=== PATIENT | male | born 1955 | race Caucasian/White ===

== ENCOUNTER 2019-07-22 09:30 | Emergency (ER) | payer OTHER, MEDICAID ==
[~2019-07-22] VITALS: Ht 172.7 cm; Wt 79.8 kg
[2019-07-22 09:43] VITALS: BP 122/63
--- NOTE | 2019-07-22 10:06 | NUR ---
64M BIB CAREGIVER C/O VOMITING A "DARK BROWN" LIQUID 2X YESTERDAY. PER CAREGIVER, PT HAS NOT BEEN EATING LIKE NORMAL, HAS DECREASED APPETITE, WOULD TO COUGHING/GAGGING WHEN PRESENTED WITH FOOD. THE DECREASE APPETITE HAS BEEN AN ONGOING ISSUE FOR MONTHS. PT DOES DRINK BOOST THOUGH. NO CHANGES IN WEIGHT. NO FEVER. HX: HTN, SEIZURES, INTELECTUAL DISSABILITY, ANEMIA, BOWEL RECONSTRUCTION SURGERY S/P OBSTRUCTION RX: SEE MED REC
[2019-07-22] MEDS ORDERED: NACL 0.9% 500 ML IV SCH (10:38)
[2019-07-22] MEDS ORDERED: PANTOPRAZOLE 40 MG INJ VIAL IVP ONE (10:40)
[2019-07-22] MEDS ORDERED: ONDANSETRON 4 MG/2 ML VIAL IVP ONE (10:40)
--- NOTE | 2019-07-22 11:22 | NUR ---
RALPH ALVARADO AT BEDSIDE FOR IV INSERTION.
--- NOTE | 2019-07-22 11:40 | NUR ---
XRAY AT BEDSIDE
[2019-07-22 11:48] LABS: BASOPHILS % (AUTO) 0.2 % (0.0-2.0); EOSINOPHILS # (AUTO) 0.4 K/uL (0-0.4); EOSINOPHILS % (AUTO) 5.4 % (0.0-4.0); HEMATOCRIT 41.6 % (36-52); HEMOGLOBIN 13.9 g/dL (12.0-18.0); LYMPHOCYTES # (AUTO) 1.8 K/uL (2.0-11.5); LYMPHOCYTES % (AUTO) 23.3 % (20.5-51.1); MEAN CORPUSCULAR HEMOGLOBIN 36 pg (27-31); MEAN CORPUSCULAR HGB CONC 34 g/dL (33-37); MEAN CORPUSCULAR VOLUME 107.8 fL (80-94); MONOCYTES # (AUTO) 1.5 K/uL (0.8-1.0); MONOCYTES % (AUTO) 20.3 % (1.7-9.3); NEUTROPHILS # (AUTO) 3.9 K/uL (1.8-7.7); NEUTROPHILS % (AUTO) 50.8 % (42.2-75.2); PLATELET COUNT (AUTO) 113 K/uL (140-450); RED BLOOD CELL COUNT(AUTO) 3.86 MIL/uL (4.20-6.10); RED CELL DISTRIBUTION WIDTH 13.8 % (11.6-13.7); WHITE BLOOD COUNT (AUTO) 7.6 K/uL (4.8-10.8)
[2019-07-22 12:00] LABS: APPEARANCE,URINE SL CLOUDY (CLEAR); BILIRUBIN,URINE NEGATIVE (NEGATIVE); BLOOD, URINE 3+ (NEGATIVE); COLOR,URINE YELLOW (YELLOW); LEUKOCYTE ESTERASE ,URINE 2+ (NEGATIVE); NITRITE, URINE NEGATIVE (NEGATIVE); UGLUCOSE NEGATIVE (NEGATIVE)
[2019-07-22 12:04] LABS: PROTHROMBIN TIME 10.7 secs (10.8-13.4)
[2019-07-22 12:11] LABS: ALBUMIN 3.1 g/dL (3.4-5.0); ANION GAP 10.3 (8-16); CARBON DIOXIDE 27.4 mmol/L (21-32); CREATININE 0.8 mg/dL (0.7-1.3); POTASSIUM 4.7 mmol/L (3.5-5.1); TOTAL BILIRUBIN 0.4 mg/dL (0.0-1.0)
--- NOTE | 2019-07-22 12:13 | NUR ---
Patient resting in bed, NAD, caregiver at bedside.
[2019-07-22 12:22] LABS: RBC,URINE 11-20 (MOD) /HPF (0-5); WBC,URINE TOO MANY TO COUNT /HPF (0-5)
[2019-07-22] MEDS ORDERED: LEVOFLOXACIN 500 MG/D5W PREMIX 100 ML IV ONE (13:05)
--- NOTE | 2019-07-22 14:31 | NUR ---
CALLED CT TO INQUIRE ABOUT ORDERED CT SCAN. NO ANSWER AT THIS TIME.
--- NOTE | 2019-07-22 14:31 | NUR ---
CT STATES DR. WOMACK INFORMED THEM THAT HE WILL ORDER A MEDICATION BEFORE TAKING PT TO CT SCAN. NOTIFIED DR. WOMACK NO NEW MED ORDER RECEIVED.
[2019-07-22] MEDS ORDERED: LORazepam 2 MG/ML VIAL IVP ONE (14:35)
--- NOTE | 2019-07-22 14:43 | NUR ---
NOTIFIED CT THAT ATIVAN HAS BEEN GIVEN.
--- NOTE | 2019-07-22 15:10 | NUR ---
CT states they will come oyster picker patient for CT scan.
--- NOTE | 2019-07-22 16:35 | NUR ---
Note jacquesnico in EDM - 07/22/19 at 1728 by MEDJOSH Patient discharged with v/s stable. Written and verbal after care instructions given and explained. Patient alert, oriented and verbalized understanding of instructions. Ambulatory with steady gait. All questions addressed prior to discharge. ID band removed. Patient advised to follow up with PMD. Rx of RODRIGO LIN given. Patient educated on indication of medication including possible reaction and side effects. Opportunity to ask questions provided and answered.
--- NOTE | 2019-07-22 16:35 | NUR ---
Patient discharged with v/s stable. Written and verbal after care instructions given and explained. Patient alert, oriented and verbalized understanding of instructions. Wheel Chair Assisted with by caregiver. All questions addressed prior to discharge. ID band removed. Patient advised to follow up with PMD. Rx of CIPRO, ZOFRAN given. Patient educated on indication of medication including possible reaction and side effects. Opportunity to ask questions provided and answered.
[2019-07-22 17:28] VITALS: BP 125/61
== END 2019-07-22 16:35 | disposition home or self-care (01) ==
LOC: MED 09:30
DX: N39.0 Urinary tract infection, site not specified (principal); I10 Essential (primary) hypertension; D64.9 Anemia, unspecified; F79 Unspecified intellectual disabilities; F17.200 Nicotine dependence, unspecified, uncomplicated; Z88.8 Allergy status to other drugs, medicaments and biological substances
CPT/HCPCS: 36415; 71045; 74176; 80053; 81001; 83605; 83690; 84484; 85025; 85610; 85730; 87040; 87086; 87186; 93005; 96361; 96365; 96375; 99284; C1758; C9113; J1956; J2060; J2405; J7030; Q0092

== ENCOUNTER 2019-08-16 12:10 | Inpatient (IN) | payer OTHER, MEDICAID ==
[~2019-08-16] VITALS: Ht 170.2 cm; Wt 66.7 kg
[2019-08-16 12:10] VITALS: BP 141/85
--- NOTE | 2019-08-16 12:49 | NUR ---
Called and spoke to Bebe about this patient and she will have Светлана [place] call me to explain why this patient is here.
--- NOTE | 2019-08-16 12:49 | NUR ---
Reyna from [facility] at bedside.
[2019-08-16] MEDS ORDERED: BISA-213 RC (13:01)
[2019-08-16] MEDS ORDERED: ATI.5 PO (13:01)
[2019-08-16] MEDS ORDERED: KEP500L PO (13:01)
[2019-08-16] MEDS ORDERED: ONDA4TAB PO (13:01)
[2019-08-16 14:28] LABS: ANION GAP 13.9 (8-16); CARBON DIOXIDE 24.7 mmol/L (21-32); CREATININE 0.7 mg/dL (0.7-1.3); POTASSIUM 4.6 mmol/L (3.5-5.1)
[2019-08-16 14:33] LABS: ALBUMIN 3.3 g/dL (3.4-5.0); TOTAL BILIRUBIN 0.6 mg/dL (0.0-1.0)
[2019-08-16 14:47] LABS: BASOPHILS % (AUTO) 0.8 % (0.0-2.0); EOSINOPHILS # (AUTO) 0.1 K/uL (0-0.4); EOSINOPHILS % (AUTO) 1.9 % (0.0-4.0); HEMATOCRIT 43.5 % (36-52); HEMOGLOBIN 14.6 g/dL (12.0-18.0); LYMPHOCYTES # (AUTO) 1.2 K/uL (2.0-11.5); LYMPHOCYTES % (AUTO) 23.6 % (20.5-51.1); MEAN CORPUSCULAR HEMOGLOBIN 35 pg (27-31); MEAN CORPUSCULAR HGB CONC 34 g/dL (33-37); MEAN CORPUSCULAR VOLUME 104.2 fL (80-94); MONOCYTES # (AUTO) 0.6 K/uL (0.8-1.0); MONOCYTES % (AUTO) 11.2 % (1.7-9.3); NEUTROPHILS # (AUTO) 3.1 K/uL (1.8-7.7); NEUTROPHILS % (AUTO) 62.5 % (42.2-75.2); PLATELET COUNT (AUTO) 248 K/uL (140-450); RED BLOOD CELL COUNT(AUTO) 4.18 MIL/uL (4.20-6.10); RED CELL DISTRIBUTION WIDTH 13.7 % (11.6-13.7)
--- NOTE | 2019-08-16 14:52 | NUR ---
Spoke with Gopal pts rn case mgr about pt status. Was informed that pt has had brown emesis over past year, w/ decreased oral intake and has not been taking oral seizure meds. PT has had GI and communication professor consult but has been unable to follow up d/t care facilites unable to follow through. Pt has had uncontrolled seizures in meant[place] and has been in and out of ERs. Per gopal pt needs to be admitted for further tests so that pt may be admitted to care facility w/ JENNY Orellana from [facility]. If jose daniel is unable to take pt once admitted gopal stated she does have another option for care facility. for further questions at this time, jose daniel should be contacted because gopal will not be in office until monday. JOSE DANIEL cell- [phone] GOPAL IZSJ - [phone]
[2019-08-16 15:23] LABS: APPEARANCE,URINE CLEAR (CLEAR); BILIRUBIN,URINE 1+ (NEGATIVE); BLOOD, URINE NEGATIVE (NEGATIVE); LEUKOCYTE ESTERASE ,URINE NEGATIVE (NEGATIVE); NITRITE, URINE NEGATIVE (NEGATIVE); PH,URINE 5.5 (5.0-9.0); UGLUCOSE NEGATIVE (NEGATIVE)
[2019-08-16 15:27] LABS: COLOR,URINE YELLOW (YELLOW)
--- NOTE | 2019-08-16 15:30 | NUR ---
Dr. Navarrete states pt does not need to be admitted at this time. I contacted Reyna and asked her if patient would be discharged back to [facility].
--- NOTE | 2019-08-16 15:53 | NUR ---
Speaking to Selene NICHOLE at [facility] to advise them that patient will be returning back to facility. I advised Selene that Светлана is aware that patient will be returning to facility. Selene advised her RN supervisor tower.
--- NOTE | 2019-08-16 15:57 | NUR ---
I called and spoke to FRANKI Gore from [facility] who states they cannot accept since they filled his bed with another bed and they are accomadating people from the fires and are 100% at capacity. he also states they cannot accomadate him d/t his pacemaker. He states they will not take him back at this time but if they have an open bed they will take him but wont be able to at this time.
[2019-08-16] MEDS ORDERED: DOCUSATE SODIUM 100 MG GELCAP PO PRN (16:20)
[2019-08-16] MEDS ORDERED: ACETAMINOPHEN 325 MG TAB PO PRN (16:20)
[2019-08-16] MEDS ORDERED: MORPHINE SULFATE 2 MG/ML SYR IVP PRN (16:20)
[2019-08-16] MEDS ORDERED: HYDROcodone/APAP 5/325 MG 1 TAB TAB PO PRN (16:20)
[2019-08-16] MEDS ORDERED: ONDANSETRON 4 MG/2 ML VIAL IM/IVP PRN (16:20)
[2019-08-16 17:20] VITALS: BP 140/60
--- NOTE | 2019-08-16 17:20 | NUR ---
Patient will be admitted to care of DR. BISHOP. Admited to TELE. Will go to [facility]. Belongings list completed. Report to JENNY LUBIN.
--- NOTE | 2019-08-16 17:20 | NUR ---
PATIENT ARRIVED FROM ER VIA GURNEY. NO DISTRESS NOTED. IN STABLE CONDITION. IV SITE INTACT, PATENT AND ON SALINE LOCK. RESPIRATIONS EVEN, UNLABORED, ON ROOM AIR. SKIN INTACT. APHASIC. ORIENTED PATIENT TO ROOM AND CALL LIGHT. REVIEWED PLAN OF CARE WITH PATIENT. UNABLE TO COMPREHEND. SAFETY MEASURES IN PLACE, CALL LIGHT WITHIN REACH. WILL CONTINUE TO MONITOR.
--- NOTE | 2019-08-16 17:30 | NUR ---
Note wallace in EDM - 08/16/19 at 1730 by [facility] Patient will be admitted to care of DR. BISHOP. Admited to TELE. Will go to [facility]. Belongings list completed. Report to JENNY LUBIN.
--- NOTE | 2019-08-16 18:00 | NUR ---
CALLED OLAMIDE(MOTHER) AT [phone] TO GET INFORMATION AND NOTIFIED HER OF SON'S CONDITION. WILL CONTINUE TO MONITOR.
[2019-08-16] MEDS: NACL 0.9% 1,000 ML IV SCH (18:10)
[2019-08-16 18:40] LABS: PROTHROMBIN TIME 10.3 secs (10.8-13.4)
[2019-08-16] MEDS ORDERED: ALBUTEROL SULFATE/IPRATROPIU 3 ML SOL IH PRN (19:05)
[2019-08-16] MEDS ORDERED: LORazepam 0.5 MG TAB PO PRN (19:10)
--- NOTE | 2019-08-16 19:30 | NUR ---
RECEIVED BEDSIDE REPORT FROM AM SHIFT RN AMEE, FOR PT'S CONTINUITY OF CARE. PT IS ASLEEP, APHASIC, ON ORTHOTIC TECHNICIAN, ON ROOM AIR, HAS RIGHT HAND 24G WITH NS AT 60ML/HR, WITH NO SIGNS OF DISTRESS. SEIZURE AND FALL PRECAUTION IN PLACE. VS CHECKED AND CHARTED. WILL MONITOR PT THROUGHOUT SHIFT
--- NOTE | 2019-08-16 19:30 | NUR ---
GAVE REPORT TO BEHAVIOR SPECIALIST NURSE FOR CONTINUITY OF CARE. PATIENT IN STABLE CONDITION.
[2019-08-16 20:00] VITALS: BP 104/68
[2019-08-16] MEDS: levETIRAcetam 500 MG TAB PO SCH (20:40)
--- NOTE | 2019-08-16 20:43 | NUR ---
ADMINISTERED SCHEDULED PO MEDICATION ORDERED. PT TOLERATED IT WELL. CT PERSONNEL AT BEDSIDE TO TAKE HIM FOR CT HEAD WITHOUT CONTRAST.
[2019-08-16 21:27] LABS: CHOL/HDL RATIO 4.3 (1-4.5); MAGNESIUM 2.1 mg/dL (1.8-2.4); PHOSPHORUS 3.8 mg/dL (2.5-4.9); THYROID STIMULATING HORMONE 2.35 uIU/mL (0.34-3.74)
--- NOTE | 2019-08-16 22:00 | NUR ---
MADE ROUNDS. PT APPEARS TO BE ASLEEP WITH NO SIGNS OF DISTRESS.
[2019-08-16] MEDS ORDERED: PIPERACILLIN/TAZOBACTAM 3.375 GM VIAL IV ONE (23:44)
[2019-08-16] MEDS: PIPERACILLIN/TAZOBACTAM 3.375 GM in DEXTROSE 5% 50 ML IV SCH (23:52)
[2019-08-17] VITALS: BP 119/63
--- NOTE | 2019-08-17 | NUR ---
VS CHECKED AND CHARTED. PT ASLEEP WITH NO SIGNS OF DISTRESS. WILL CONTINUE TO MONITOR PT.
--- NOTE | 2019-08-17 02:00 | NUR ---
MADE ROUNDS. PT ASLEEP, SB ON TELE: 47-52. PT DOES NOT EXHIBIT ANY DISTRESS. WILL CONTINUE TO MONITOR PT.
[2019-08-17 04:00] VITALS: BP 134/72
--- NOTE | 2019-08-17 04:00 | NUR ---
VS CHECKED AND CHARTED. PT ASLEEP WITH NO SIGNS OF DISTRESS. WILL CONTINUE TO MONITOR PT.
[2019-08-17] MEDS ORDERED: PIPERACILLIN/TAZOBACTAM 3.375 GM VIAL IV ONE (06:18)
[2019-08-17] MEDS: PIPERACILLIN/TAZOBACTAM 3.375 GM in DEXTROSE 5% 50 ML IV SCH ×3 (06:25→22:43)
--- NOTE | 2019-08-17 06:25 | NUR ---
ADMINISTERED SCHEDULED IV ABX ORDERED. PT AWAKE, LYING IN BED QUIETLY, WITH NO SIGNS OF DISTRESS. WILL ENDORSE TO AM SHIFT RN FOR PT'S CONTINUITY OF CARE.
--- NOTE | 2019-08-17 07:15 | NUR ---
RECEIVED REPORT FROM NIGHT RN. PATIENT IS FULL CODE WITH MULTIPLE DRUG ALLERGIES. AAOX0 BUT FOLLOWS COMMANDS. PT HAS A RIGHT HAND 24G WITH NS INFUSING AT 60ML/HR. PATIENT IS ON ASPIRATION AND SEIZURE PRECAUTIONS. CURRENTLY SLEEPING IN BED, VISIBLE CHEST RISE AND FALL. WILL REVIEW AND CONTINUE WITH PLAN OF CARE FOR THE DAY.
[2019-08-17 07:40] LABS: ANION GAP 11.1 (8-16); CARBON DIOXIDE 27.9 mmol/L (21-32); CREATININE 0.6 mg/dL (0.7-1.3)
[2019-08-17 07:45] LABS: MAGNESIUM 1.7 mg/dL (1.8-2.4); PHOSPHORUS 3.4 mg/dL (2.5-4.9)
[2019-08-17 08:00] VITALS: BP 130/64
[2019-08-17 08:00] LABS: EOSINOPHILS # (AUTO) 0.1 K/uL (0-0.4); EOSINOPHILS % (AUTO) 3.1 % (0.0-4.0); HEMATOCRIT 40.4 % (36-52); HEMOGLOBIN 13.5 g/dL (12.0-18.0); LYMPHOCYTES # (AUTO) 1.4 K/uL (2.0-11.5); LYMPHOCYTES % (AUTO) 33.6 % (20.5-51.1); MEAN CORPUSCULAR HEMOGLOBIN 36 pg (27-31); MEAN CORPUSCULAR HGB CONC 34 g/dL (33-37); MEAN CORPUSCULAR VOLUME 106.3 fL (80-94); MONOCYTES # (AUTO) 0.6 K/uL (0.8-1.0); MONOCYTES % (AUTO) 13.8 % (1.7-9.3); NEUTROPHILS # (AUTO) 2.1 K/uL (1.8-7.7); NEUTROPHILS % (AUTO) 48.5 % (42.2-75.2); PLATELET COUNT (AUTO) 222 K/uL (140-450); RED BLOOD CELL COUNT(AUTO) 3.81 MIL/uL (4.20-6.10); RED CELL DISTRIBUTION WIDTH 13.6 % (11.6-13.7); WHITE BLOOD COUNT (AUTO) 4.3 K/uL (4.8-10.8)
[2019-08-17] MEDS: NACL 0.9% 1,000 ML IV SCH (08:57)
--- NOTE | 2019-08-17 09:00 | NUR ---
ADMINISTERED MORNING MEDICATION. PATIENT WAS ABLE TO SWALLOW PO WITH NO ISSUES.
[2019-08-17] MEDS: PANTOPRAZOLE 40 MG INJ VIAL IVP SCH (09:15)
[2019-08-17] MEDS: levETIRAcetam 500 MG TAB PO SCH ×2 (09:18→20:10)
[2019-08-17] MEDS: LISINOPRIL 5 MG TAB PO SCH (09:19)
[2019-08-17 12:00] VITALS: BP 113/51
--- NOTE | 2019-08-17 12:15 | NUR ---
PATIENT IS RESTING QUIETLY IN BED. NO COMPLAINTS AT THIS TIME.
[2019-08-17 16:00] VITALS: BP 111/57
--- NOTE | 2019-08-17 19:30 | NUR ---
RECEIVED BEDSIDE REPORT FROM AM SHIFT RN NATALYA, FOR PT'S CONTINUITY OF CARE. PT IS AWAKE, APHASIC, ON BLOCK SETTER GYPSUM, ON ROOM AIR, HAS RIGHT HAND 24G WITH NS AT 60ML/HR, NO SIGNS OF DISTRESS. SAFETY MEASURES IN PLACE, SEIZURE AND FALL PRECAUTION IN PLACE. SIDE RAILS ARE UP, CALL LIGHT IS WITHIN REACH, AND BED IS IN LOW POSITION. WILL MONITOR PT THROUGHOUT SHIFT.
--- NOTE | 2019-08-17 19:59 | NUR ---
RECEIVED PT ON RA, RESTING IN BED WITH HOB>30, SP02 98%, BREATH SOUNDS WERE CLEAR. PT WAS INFORMED TO NOTIFY RN WHEN EXPERIENCING SOB. NO RESPIRATORY DISTRESS NOTED. WILL CONTINUE TO MONITOR PT
[2019-08-17 20:00] VITALS: BP 116/65
--- NOTE | 2019-08-17 20:10 | NUR ---
ADMINISTERED SCHEDULED PO MEDICATIONS ORDERED. PT TOLERATED IT WELL. WILL CONTINUE TO MONITOR PT.
--- NOTE | 2019-08-17 22:00 | NUR ---
MADE ROUNDS. PT LYING DOWN STILL AWAKE, WITH NO SIGNS OF DISTRESS. WILL CONTINUE TO MONITOR PT.
[2019-08-18] VITALS: BP 114/67
--- NOTE | 2019-08-18 | NUR ---
VS CHECKED AND CHARTED. PT SHOWS NO SIGNS OF PAIN OR DISTRESS. PT MOVED TO ROOM 111B.
[2019-08-18] MEDS: NACL 0.9% 1,000 ML IV SCH ×2 (01:37→18:26)
--- NOTE | 2019-08-18 02:15 | NUR ---
MADE ROUNDS. PT AWAKE, LYING IN BED, WITH NO SIGNS OF DISTRESS.
[2019-08-18 04:00] VITALS: BP 150/69
--- NOTE | 2019-08-18 04:00 | NUR ---
VS CHECKED AND CHARTED. PT LYING AWAKE WITH NO SIGNS OF DISTRESS. WILL CONTINUE TO MONITOR PT.
--- NOTE | 2019-08-18 06:20 | NUR ---
PT PULLED OUT IV. ATTEMPTED TO INSERT NEW IV WITH NO AVAIL. SUPERVISOR INTERNATIONAL RESERVATIONS AWARE. WILL ENDORSE TO AM SHIFT RN FOR PT'S CONTINUITY OF CARE.
--- NOTE | 2019-08-18 07:22 | NUR ---
RECEIVED BEDSIDE REPORT FROM MANAGER FINE NURSE, PT IS AWAKE BUT CONFUSED. PT IS NONVERBAL, HX OF MENTAL/INTELLECTUAL DELAY. PER NIGHT NURSE, PT PULLED OUT HIS IV, AND THEY HAVE BEEN UNABLE TO INSERT A NEW IV SINCE PT IS A HARD STICK. PT IS ON ROOM AIR, SKIN IS INTACT. SEIZURE AND ASPIRATION PRECAUTIONS IN PLACE. CALL LIGHT IS WITHIN REACH, WILL CONTINUE TO MONITOR.
[2019-08-18 08:00] VITALS: BP 135/85
--- NOTE | 2019-08-18 08:10 | NUR ---
ER NURSE PLACED AN IV IN PT'S R THUMB 24 G.
[2019-08-18 08:15] LABS: ANION GAP 14.6 (8-16); CARBON DIOXIDE 23.9 mmol/L (21-32); CREATININE 0.7 mg/dL (0.7-1.3); POTASSIUM 3.5 mmol/L (3.5-5.1)
--- NOTE | 2019-08-18 08:15 | NUR ---
PATIENT HAS BEEN SCREENED AND CATEGORIZED HIGH NUTRITION RISK. PATIENT WILL BE SEEN WITHIN 1-2 DAYS OF ADMISSION. 08/18/[address]
[2019-08-18 08:22] LABS: MAGNESIUM 1.6 mg/dL (1.8-2.4); PHOSPHORUS 2.9 mg/dL (2.5-4.9)
[2019-08-18] MEDS: PANTOPRAZOLE 40 MG INJ VIAL IVP SCH (09:40)
[2019-08-18] MEDS: levETIRAcetam 500 MG TAB PO SCH ×2 (09:41→20:31)
[2019-08-18] MEDS: PIPERACILLIN/TAZOBACTAM 3.375 GM in DEXTROSE 5% 50 ML IV SCH ×3 (09:41→23:38)
[2019-08-18] MEDS: LISINOPRIL 5 MG TAB PO SCH (09:41)
--- NOTE | 2019-08-18 09:56 | NUR ---
ADMINISTERED PT'S PO MEDS CRUSHED WITH YOGURT. PT WAS VERY RESISTANT TO EATING THE SPOON OF YOGURT, TURNING AWAY AND . Addendum: 08/18/19 at 0959 by Ailyn Naik RN COVERING HIS FACE WITH HIS HANDS. I CALLED OTHER STAFF FOR ASSISTANCE TO HELP ME HOLD THE PT, AND PT FINALLY TOOK THE SPOON OF MEDICINE.
--- NOTE | 2019-08-18 10:20 | NUR ---
DR TRUONG MADE AWARE OF PT'S MAG 1.6
--- NOTE | 2019-08-18 10:47 | NUR ---
PT GETTING CLEANED AND CHANGED AT THIS TIME.
[2019-08-18] MEDS ORDERED: MAG SULF 2000 MG/WATER PREMIX 50 ML IV SCH (11:00)
--- NOTE | 2019-08-18 11:11 | NUR ---
MAG RIDER HUNG AND INFUSING FOR MAG LEVEL 1.6 . PT IS SLEEPING, NO S/S OF DISTRESS NOTED.
--- NOTE | 2019-08-18 13:27 | NUR ---
08/18/19 RD INITIAL ASSESSMENT COMPLETED PLEASE REFER TO NUTRITION ASSESSMENT UNDER CARE ACTIVITY FOR ESTIMATED NUTRITIONAL NEEDS. RD RECOMMENDATIONS: 1. RECOMMEND ADDING NTL ENSURE ENLIVE BID TO MECHANICAL SOFT DIET DUE TO PT WITH PO INTAKE. 2. RD WILL F/U 2-3 DAYS; HIGH RISK. GERMAN RUTHERFORD, RD
[2019-08-18 13:42] LABS: BASOPHILS # (AUTO) 0.1 K/uL (0.00-0.22); BASOPHILS % (AUTO) 1.2 % (0.0-2.0); EOSINOPHILS # (AUTO) 0.1 K/uL (0-0.4); EOSINOPHILS % (AUTO) 3.1 % (0.0-4.0); HEMATOCRIT 43.4 % (36-52); HEMOGLOBIN 14.4 g/dL (12.0-18.0); LYMPHOCYTES # (AUTO) 1.6 K/uL (2.0-11.5); LYMPHOCYTES % (AUTO) 34.6 % (20.5-51.1); MEAN CORPUSCULAR HEMOGLOBIN 35 pg (27-31); MEAN CORPUSCULAR HGB CONC 33 g/dL (33-37); MEAN CORPUSCULAR VOLUME 106.1 fL (80-94); MONOCYTES # (AUTO) 0.6 K/uL (0.8-1.0); MONOCYTES % (AUTO) 13.4 % (1.7-9.3); NEUTROPHILS # (AUTO) 2.3 K/uL (1.8-7.7); NEUTROPHILS % (AUTO) 47.7 % (42.2-75.2); PLATELET COUNT (AUTO) 228 K/uL (140-450); RED BLOOD CELL COUNT(AUTO) 4.09 MIL/uL (4.20-6.10); RED CELL DISTRIBUTION WIDTH 13.6 % (11.6-13.7); WHITE BLOOD COUNT (AUTO) 4.7 K/uL (4.8-10.8)
[2019-08-18 16:00] VITALS: BP 135/60
--- NOTE | 2019-08-18 17:10 | NUR ---
PT REFUSED TO EAT ANY OF HIS LUNCH, TURNING AWAY AND PUSHING STAFF'S HANDS AWAY WHEN BEING FED.
[2019-08-18] MEDS ORDERED: LORazepam 2 MG/ML VIAL IM/IVP PRN (18:05)
--- NOTE | 2019-08-18 19:22 | NUR ---
ENDORSED PT TO CUSTOMER SERVICE CLERK NURSE IN STABLE CONDITION.
--- NOTE | 2019-08-18 20:29 | NUR ---
RECEIVED PT ON RA, SP02 97% WITH CLEAR BREATH SOUNDS. NO RESPIRATORY DISTRESS NOTED AT THIS TIME. PRN TX NOT GIVEN. PT WAS INFORMED TO CALL RN WHEN EXPERIENCING SOB. WILL CONTINUE TO MONITOR PT
--- NOTE | 2019-08-18 20:31 | NUR ---
ADMINISTERED SCHEDULED PO MEDICATION ORDERED. OFFERED PT VANILLA PUDDING WITH THE MEDICATION. PT TOLERATED IT WELL. WILL CONTINUE TO MONITOR PT.
--- NOTE | 2019-08-18 23:38 | NUR ---
ADMINISTERED SCHEDULED IV ABX ORDERED. PT AWAKE, WITH NO SIGNS OF DISTRESS. VS CHECKED AND CHARTED. WILL CONTINUE TO MONITOR PT. IV SITE STILL PATENT AND INTACT.
[2019-08-19] VITALS: BP 136/61
--- NOTE | 2019-08-19 02:30 | NUR ---
MADE ROUNDS. PT ASLEEP WITH NO SIGNS OF DISTRESS. WILL CONTINUE TO MONITOR PT.
[2019-08-19] MEDS ORDERED: PIPERACILLIN/TAZOBACTAM 3.375 GM VIAL IV ONE (05:59)
[2019-08-19] MEDS: PIPERACILLIN/TAZOBACTAM 3.375 GM in DEXTROSE 5% 50 ML IV SCH ×3 (06:04→23:16)
[2019-08-19] MEDS: NACL 0.9% 1,000 ML IV SCH ×2 (06:04→14:33)
--- NOTE | 2019-08-19 06:05 | NUR ---
ADMINISTERED SCHEDULED IV ABX ORDERED. PT QUIETLY LYING DOWN AWAKE, WITH NO SIGNS OF DISTRESS. WILL ENDORSE TO AM SHIFT RN FOR PT'S CONTINUITY OF CARE.
--- NOTE | 2019-08-19 07:20 | NUR ---
RECEIVED REPORT FROM BOX BLANK MACHINE OPERATOR NURSE. PT AROUSABLE TO NAME, ORIENTED X1, PT HAS INTELLECTUAL DISABILITY. RESPIRATIONS EVEN AND UNLABORED ON RA. ACTIVE BS, SOFT ABD. SKIN IS INTACT, WARM TO TOUCH. PT ON FALL RISK PRECAUTIONS, SAFETY MEASURES IN PLACE, CALL LIGHT WITHIN REACH. REVIEWED POC WITH PT, PT VERBALIZED UNDERSTANDING.
[2019-08-19 08:00] VITALS: BP 134/60
--- NOTE | 2019-08-19 08:09 | NUR ---
SCREEN FOR LOW AUDREY SCALE AT RISK, CONTINUE TO FOLLOW PRESSURE ULCER PREVENTION INTERVENTIONS. -TURN AND REPOSITION PATIENT Q 2H -ASSESS AND MONITOR SKIN CONDITION DURING POSITION CHANGE -OFFLOAD BILATERAL HEELS BY PLACING PILLOWS UNDER CALVES AT ALL TIMES, UNLESS OTHERWISE CONTRAINDICATED -PRESSURE REDISTRIBUTION BY PLACING PILLOWS -KEEP SKIN CLEAN AND DRY AT ALL TIMES.
[2019-08-19] MEDS: levETIRAcetam 500 MG TAB PO SCH ×2 (09:31→22:07)
[2019-08-19] MEDS: LISINOPRIL 5 MG TAB PO SCH (09:31)
[2019-08-19] MEDS: PANTOPRAZOLE 40 MG INJ VIAL IVP SCH (09:31)
--- NOTE | 2019-08-19 10:29 | NUR ---
JOSE DANIEL FROM [facility] IN THE UNIT CHECKING THE PATIENT AND ASKING SOME INFORMATION ABOUT THE PATIENT. SHE WAS SENT FROM [facility] , SPOKE WITH GOPAL UPDATED PT CONDITION AND PLAN , PER GOPAL WANTED THE PATIENT TO GO TO [facility] WITH JOSE DANIEL . EXPLAIN ERICA WAITING FOR DR BUTLER TO SEE PATENT AND F/U WITH THE DISCHARGE PLANNING. NOTIFIED DR DELANEY TO SPEAK WITH [facility].
--- NOTE | 2019-08-19 10:30 | NUR ---
PT RESTING IN BED WITH HOB ELEVATED. PT HAS NO SIGNS OF DISTRESS AT THIS TIME.
--- NOTE | 2019-08-19 11:26 | NUR ---
CALLED PICC LINE SERVICE, PER AMY ENNIS-PICC LINE RN WILL CALL FOR ETA. DAVID-RN ASSIGNED MADE AWARE.
--- NOTE | 2019-08-19 13:15 | NUR ---
MACEY/PICC LINE NURSE AT BEDSIDE. TIMEOUT COMPLETED WITH JENNY HERNANDEZ AND ULTRASOUND STAFF.
--- NOTE | 2019-08-19 13:30 | NUR ---
PICC LINE INSERTED IN RT UA, DOUBLE LUMEN INTACT AND FLUSHING WITH NO RESISTANCE. PT TOLERATED PROCEDURE WELL.
--- NOTE | 2019-08-19 13:50 | NUR ---
PER COY/ISAC, PT REFUSED MEAL DESPITE SEVERAL ATTEMPTS TO FEED PT.
--- NOTE | 2019-08-19 14:34 | NUR ---
ADMINISTERED ZOSYN PER ORDER, REVIEWED INDICATIONS AND POTENTIAL SIDE EFFECTS OF MEDICATION BUT NEEDS REINFORCEMENT D/T PMH OF INTELLECTUAL DISABILITY.
[2019-08-19] MEDS ORDERED: MAG SULF 2000 MG/WATER PREMIX 50 ML IV SCH (15:00)
--- NOTE | 2019-08-19 15:20 | NUR ---
DR. DELANEY ON THE PHONE EXPLAINING TO PT'S MOTHER/OLAMIDE REGARDING PROCEDURE/CT ABDOMEN/PELVIS WITH CONTRAST TO BE DONE TODAY, EXPLAINED RISKS AND BENEFITS. RECEIVED CONSENT FROM PT'S MOTHER, SECONDARY NURSE/RUT VERIFIED TELEPHONE CONSENT.
[2019-08-19 16:00] VITALS: BP 128/73
[2019-08-19] MEDS ORDERED: NACL 0.9% 500 ML IV SCH (16:00)
[2019-08-19] MEDS: DEXT 5% /NACL 0.9% 1,000 ML IV SCH (16:20)
--- NOTE | 2019-08-19 16:35 | NUR ---
VSS STABLE, FLACC 0. ADMINISTERED MAGNESIUM SULFATE PER ORDER FOR LOW MAGNESIUM LEVEL. WILL CONTINUE TO MONITOR LEVEL.
--- NOTE | 2019-08-19 17:00 | NUR ---
NOTIFIED LAB THAT BLOOD CAN BE DRAWN VIA PICC LINE. PER LAB, THEY WILL COME AT A LATER TIME.
[2019-08-19 18:02] LABS: BASOPHILS % (AUTO) 0.8 % (0.0-2.0); EOSINOPHILS # (AUTO) 0.2 K/uL (0-0.4); EOSINOPHILS % (AUTO) 3.4 % (0.0-4.0); HEMATOCRIT 37.1 % (36-52); HEMOGLOBIN 12.7 g/dL (12.0-18.0); LYMPHOCYTES # (AUTO) 1.5 K/uL (2.0-11.5); LYMPHOCYTES % (AUTO) 32.7 % (20.5-51.1); MEAN CORPUSCULAR HEMOGLOBIN 36 pg (27-31); MEAN CORPUSCULAR HGB CONC 34 g/dL (33-37); MEAN CORPUSCULAR VOLUME 104.3 fL (80-94); MONOCYTES # (AUTO) 0.6 K/uL (0.8-1.0); MONOCYTES % (AUTO) 14.3 % (1.7-9.3); NEUTROPHILS # (AUTO) 2.2 K/uL (1.8-7.7); NEUTROPHILS % (AUTO) 48.8 % (42.2-75.2); PLATELET COUNT (AUTO) 184 K/uL (140-450); RED BLOOD CELL COUNT(AUTO) 3.56 MIL/uL (4.20-6.10); RED CELL DISTRIBUTION WIDTH 13.6 % (11.6-13.7); WHITE BLOOD COUNT (AUTO) 4.5 K/uL (4.8-10.8)
[2019-08-19 18:16] LABS: ANION GAP 10.3 (8-16); CARBON DIOXIDE 27.2 mmol/L (21-32); CREATININE 0.5 mg/dL (0.7-1.3); POTASSIUM 3.5 mmol/L (3.5-5.1)
[2019-08-19 18:21] LABS: MAGNESIUM 2.6 mg/dL (1.8-2.4); PHOSPHORUS 2.9 mg/dL (2.5-4.9)
--- NOTE | 2019-08-19 19:10 | NUR ---
ENDORSED PT TO BRANCH CREDIT COUNSELOR NURSE. PT HAS NO SIGNS OF DISTRESS AT THIS TIME.
--- NOTE | 2019-08-19 19:15 | NUR ---
RECEIVED BEDSIDE REPORT FROM AM SHIFT NURSE. PT IS LAYING IN BED SUPINE. NO SOB OR DISTRESS NOTED. PICC LINE ON RIGHT UPPER ARM, PATENT AND INFUSING WELL. IV ACCESS ON RIGHT THUMB 24 GAUGE. INITIAL ASSESSMENT DONE. SAFETY PRECAUTIONS IN PLACE. SEIZURE PRECAUTIONS IN PLACE. CALL LIGHT PLACED WITHIN PATIENT REACH. WILL CONTINUE TO MONITOR PATIENT.
--- NOTE | 2019-08-19 20:47 | NUR ---
PRN ATIVAN GIVEN BEFORE CT SCAN. PT WAS COMBATIVE AND WAS BITING. WILL CONTINUE TO MONITOR PATIENT.
--- NOTE | 2019-08-19 20:57 | NUR ---
PT TAKEN FOR CT SCAN VIA [employer]. NO SOB OR DISTRESS NOTED AT THIS TIME.
--- NOTE | 2019-08-19 21:18 | NUR ---
PT RETURNED FROM CT SCAN. NO SOB OR DISTRESS NOTED. WILL CONTINUE TO MONITOR PATIENT.
[2019-08-19] MEDS ORDERED: NACL 0.9% 500 ML IV ONE (22:35)
--- NOTE | 2019-08-19 22:44 | NUR ---
NS 500ML BOLUS GIVEN AFTER CT SCAN WITH CONTRAST DONE. NO DISTRESS NOTED. WILL CONTINUE TO MONITOR PATIENT.
--- NOTE | 2019-08-19 23:18 | NUR ---
NS BOLUS DONE. TOLERATED WELL. WILL CONTINUE TO MONITOR PATIENT.
[2019-08-20 00:10] VITALS: BP 101/51
--- NOTE | 2019-08-20 00:10 | NUR ---
VITAL SIGNS TAKEN. NO DISTRESS NOTED AT THIS TIME. WILL CONTINUE TO MONITOR PATIENT.
--- NOTE | 2019-08-20 02:02 | NUR ---
ROUNDS DONE. PT SLEEPING ON RIGHT LATERAL SIDE. VISIBLE CHEST RISE AND FALL NOTED. WILL CONTINUE TO MONITOR PATIENT.
[2019-08-20] MEDS: DEXT 5% /NACL 0.9% 1,000 ML IV SCH ×3 (03:10→22:10)
--- NOTE | 2019-08-20 04:05 | NUR ---
ROUNDS DONE. PATIENT ASLEEP. VISIBLE CHEST RISE AND FALL NOTED. WILL CONTINUE TO MONITOR PATIENT.
[2019-08-20] MEDS: PIPERACILLIN/TAZOBACTAM 3.375 GM in DEXTROSE 5% 50 ML IV SCH ×3 (06:10→22:10)
--- NOTE | 2019-08-20 07:15 | NUR ---
PT IN STABLE CONDITION. ENDORSED TO AM SHIFT JENNY HERNANDEZ FOR CONTINUITY OF CARE.
--- NOTE | 2019-08-20 07:16 | NUR ---
RECEIVED REPORT FROM ROLL CUTTING OPERATOR NURSE. PT AROUSABLE TO TOUCH, ORIENTED X1, PT HAS INTELLECTUAL DISABILITY. FLACC 0. RESPIRATIONS EVEN AND UNLABORED ON RA. ACTIVE BS, SOFT ABD, LBM 08/19. SKIN IS INTACT, WARM TO TOUCH. PT ON FALL RISK PRECAUTIONS, SAFETY MEASURES IN PLACE, CALL LIGHT WITHIN REACH. REVIEWED POC WITH PT, PT UNABLE TO UNDERSTANDING BUT WILL CONTINUE TO REINFORCE, CONTINUE TO GIVE COMFORT MEASURES, AND ALLOW ACTIVITIES OF INTEREST IF NOT CONTRAINDICATED.
[2019-08-20 07:33] LABS: HEMATOCRIT 42.2 % (36-52); HEMOGLOBIN 14.2 g/dL (12.0-18.0); MEAN CORPUSCULAR HEMOGLOBIN 36 pg (27-31); MEAN CORPUSCULAR HGB CONC 34 g/dL (33-37); MEAN CORPUSCULAR VOLUME 105.8 fL (80-94); PLATELET COUNT (AUTO) 202 K/uL (140-450); RED BLOOD CELL COUNT(AUTO) 3.99 MIL/uL (4.20-6.10); RED CELL DISTRIBUTION WIDTH 13.6 % (11.6-13.7); WHITE BLOOD COUNT (AUTO) 4.6 K/uL (4.8-10.8)
[2019-08-20 08:00] VITALS: BP 131/75
--- NOTE | 2019-08-20 09:00 | NUR ---
DISCHARGE PLANNINYRS OLD M PT WAS ADMITTED FROM ER WITH A DX OF FAILURE TO THRIVE. PT RESIDES [facility] ,NON VERBAL WITH A HX OF MENTALLY CHALLENGE NON-VERBAL AND BED BOUND AT BASE LINE , SEIZURE , MAY HAVE LEUKEMIA PER PCP RECENTLY WAS ON HOSPICE. PATIENT MOTHER (ROSELIA DSOUZA AND PIANO REFINISHER GOPAL [facility] [phone] HEAD DONE , FNS CONSULT FOR MALNUTRITION CXR MILD BIBASILAR ATELECTASIS , SWALLOWING EVAL AND IV PROTONIX STARTED . D/C PLANNING FOR LONGTERM SNF. Addendum: 08/21/19 at 1159 by Irma Rivera CM D/C PLANNING CT HEAD NEGATIVE FOR BLEEDING ,PICC LINE INSERTED FOR IV ABX X 3 DAYS PT IS MEDICALLY STABLE TO BE DISCHARGE TO PRISON. CURRENTLY GOPAL CAP COVERER LOOKING FOR A PRISON THAT WOULD FIT THE PATIENT NEEDS , PER GOPAL GIBSON FROM [facility] (PRISON) WILL COME TO SEE PATIENT, 2ND PLAN [facility] TO [facility] Addendum: 08/21/19 at 1357 by Irma Rivera CM CALLED [facility] SHAHRAM KRISHNAMURTHY STILL REVIEWING THE CASE. FAXED TO [facility] [phone] SPOKE WITH [facility]ER C[facility] WILL REVIEW THE CASE AND CALL BACK CM TO FOLLOW Addendum: 08/21/19 at 1403 by Irma Rivera CM DC PLANNING : CALLED GOPAL REGARDING THE DELAY FOR [facility] PER GOPAL SHE LEFT A MESSAGE AND WILL GET BACK TO US CM/TO FOLLOW Addendum: 08/21/19 at 1534 by Kobe Mosquera SS YRN faxed clinicals to Mariela Mendoza from [facility] contacted YRN and stated that patient would be accepted under Dr. Simpson in Room 220 Bed B. Gopal was informed that patient would be admitted to [facility] and agreed. Reji stated that he would arrange for transportation for 5:00PM. Patient's nurse Nyasia was notified. No further needs identified. Kobe Mosquera, SHRUTI Ext. [phone]
[2019-08-20] MEDS: LISINOPRIL 5 MG TAB PO SCH (09:15)
[2019-08-20] MEDS: levETIRAcetam 500 MG TAB PO SCH ×2 (09:15→22:10)
[2019-08-20] MEDS: PANTOPRAZOLE 40 MG INJ VIAL IVP SCH (09:15)
--- NOTE | 2019-08-20 09:15 | NUR ---
ADMINISTERED MEDICATIONS PER ORDER WITH PUDDING, REVIEWED INDICATIONS AND POTENTIAL SIDE EFFECTS WITH PT, PT UNABLE TO COMPREHEND, HX OF INTELLECTUAL DISABILITY.
[2019-08-20 09:52] LABS: CREATININE 0.6 mg/dL (0.7-1.3); POTASSIUM 4.1 mmol/L (3.5-5.1)
[2019-08-20 11:18] LABS: EOSINOPHILS % (MANUAL) 4 % (0-4); LYMPHOCYTES % (MANUAL) 32 % (20-46); MONOCYTES % (MANUAL) 10 % (5-12)
--- NOTE | 2019-08-20 11:30 | NUR ---
PT IS RESTING IN SUPINE POSITION IN BED. PT HAS NO SIGNS OF DISTRESS AT THIS TIME. FLACC 0.
[2019-08-20 11:40] LABS: ANION GAP 17.6 (8-16); CARBON DIOXIDE 23.5 mmol/L (21-32)
--- NOTE | 2019-08-20 12:45 | NUR ---
PT ATE 80% OF LUNCH TRAY. PT HAS NO SIGNS OF DISTRESS AT THIS TIME.
[2019-08-20] MEDS ORDERED: ASPI81EC98 PO (14:15)
[2019-08-20] MEDS ORDERED: PANT40EC PO (14:15)
[2019-08-20] MEDS ORDERED: MEGE40SU1 PO (14:15)
[2019-08-20] MEDS ORDERED: DOCU-299 PO (14:15)
[2019-08-20] MEDS ORDERED: LISI-424 PO (14:15)
--- NOTE | 2019-08-20 15:00 | NUR ---
PT IS LYING IN LEFT LATERAL SIDE, RESTING WITH NO SIGNS OF DISTRESS. WILL CONTINUE TO MONITOR.
[2019-08-20 16:00] VITALS: BP 128/77
--- NOTE | 2019-08-20 16:19 | NUR ---
ADMINISTERED IV ZOSYN PER ORDER REVIEWED INDICATIONS AND POTENTIAL SIDE EFFECTS WITH PT, PT UNABLE TO COMPREHEND, HX OF INTELLECTUAL DISABILITY.
--- NOTE | 2019-08-20 19:00 | NUR ---
ENDORSED PT TO WELL LOGGER NURSE. PT HAS NO SIGNS OF DISTRESS AT THIS TIME.
--- NOTE | 2019-08-20 19:01 | NUR ---
RECD. RESTING IN BED, AWAKE, A/OX1, WHEN INQUIRED HOW HE IS, JUST MAKES INCOMPREHENSIBLE SOUNDS. RESPIRATION EVEN AND UNLABORED. IV OF D5 NS AT 80 ML/HR INFUSING RIGHT UPPER ARM DOUBLE LUMEN, WITH RIGHT THUMB G24,SL. REORIENTED TO HOSPITAL SETTING. SAFETY MEASURES ENFORCED, SIDE RAILS WITH PADS, BED ON THE LOWEST POSITION. PLAN OF CARE FOR THE SHIFT DISCUSSED. NEEDS REINFORCEMENT. NO APPEARANCE OF PAIN NOTED, FLACC -0.
--- NOTE | 2019-08-20 19:35 | NUR ---
Patient's Plan of Care was discussed and reviewed with STOVE TENDER: RANDELL PINO
--- NOTE | 2019-08-20 20:30 | NUR ---
RESTING IN BED, STILL AWAKE. ENDORSED TO JENNY ASHBY FOR CONTINUITY OF CARE.
--- NOTE | 2019-08-20 20:35 | NUR ---
RECEIVED REPORT FROM OTHER IMMIGRATION PARALEGAL NURSE. PT LYING IN BED,AWAKE AND ALERT. NON VERBAL. NO S/S OF PAIN OR SOB. PT ON ROOM AIR. SKIN INTACT. PT HAS PICC LINE TO RIGHT UPPER ARM, DOUBLE LUMEN. IV TO RIGHT THUMB #25, SALINE LOCK. FALL AND SEIZURE PRECAUTIONS IN PLACE. CALL LIGHT WITHIN REACH.
--- NOTE | 2019-08-20 23:15 | NUR ---
PT LYING IN BED, ALERT AND AWAKE. NO S/S OF RESP DISTRESS OR PAIN. PT KEPT CLEAN DRY AND COMFORTABLE.
[2019-08-21] VITALS: BP_SYST 111; BP_SYST 113; BP_DIAS 62
--- NOTE | 2019-08-21 01:30 | NUR ---
PT SLEEPING BUT WAKES EASILY. RESP EVEN AND UNLABORED. FLACC 0. SAFETY PRECAUTION IN PLACE.
--- NOTE | 2019-08-21 04:00 | NUR ---
PT SLEEPING. NO S/S OF PAIN OR RESP DISTRESS NOTED. PT KEPT DRY AND COMFORTABLE.
[2019-08-21] MEDS: PIPERACILLIN/TAZOBACTAM 3.375 GM in DEXTROSE 5% 50 ML IV SCH ×2 (05:09→13:53)
--- NOTE | 2019-08-21 06:00 | NUR ---
PT WAS CLEANSED AND REPOSITIONED. NO S/S OF PAIN OR DISCOMFORT. PT KEPT COMFORTABLE.
[2019-08-21 07:13] LABS: BASOPHILS % (AUTO) 0.8 % (0.0-2.0); EOSINOPHILS # (AUTO) 0.2 K/uL (0-0.4); EOSINOPHILS % (AUTO) 4.5 % (0.0-4.0); HEMATOCRIT 37.6 % (36-52); HEMOGLOBIN 12.7 g/dL (12.0-18.0); LYMPHOCYTES # (AUTO) 1.3 K/uL (2.0-11.5); LYMPHOCYTES % (AUTO) 30.8 % (20.5-51.1); MEAN CORPUSCULAR HEMOGLOBIN 35 pg (27-31); MEAN CORPUSCULAR HGB CONC 34 g/dL (33-37); MEAN CORPUSCULAR VOLUME 104.8 fL (80-94); MONOCYTES # (AUTO) 0.6 K/uL (0.8-1.0); MONOCYTES % (AUTO) 14.9 % (1.7-9.3); NEUTROPHILS # (AUTO) 2.1 K/uL (1.8-7.7); PLATELET COUNT (AUTO) 164 K/uL (140-450); RED BLOOD CELL COUNT(AUTO) 3.59 MIL/uL (4.20-6.10); RED CELL DISTRIBUTION WIDTH 13.4 % (11.6-13.7); WHITE BLOOD COUNT (AUTO) 4.3 K/uL (4.8-10.8)
--- NOTE | 2019-08-21 07:20 | NUR ---
ENDORSED PT TO DAY SHIFT NURSE. PT IN STABLE CONDITION.
[2019-08-21 07:22] LABS: ANION GAP 11.3 (8-16); CARBON DIOXIDE 26.4 mmol/L (21-32); CREATININE 0.5 mg/dL (0.7-1.3); POTASSIUM 3.7 mmol/L (3.5-5.1)
--- NOTE | 2019-08-21 07:23 | NUR ---
RECEIVED REPORT FROM BIOMEDICAL EQUIPMENT TECH NURSE. PATIENT IN BED, AWAKE AND ALERT. NON VERBAL. RESPIRATION EVEN AND UNLABORED. PT ON ROOM AIR. SKIN INTACT. PT HAS PICC LINE TO RIGHT UPPER ARM, DOUBLE LUMEN. IV TO RIGHT THUMB #25, SALINE LOCK. FALL AND SEIZURE PRECAUTIONS IN PLACE. CALL LIGHT WITHIN REACH.
[2019-08-21 08:00] VITALS: BP 132/67
[2019-08-21] MEDS: levETIRAcetam 500 MG TAB PO SCH ×2 (09:00→10:00)
[2019-08-21] MEDS: LISINOPRIL 5 MG TAB PO SCH ×2 (09:00→10:00)
--- NOTE | 2019-08-21 10:00 | NUR ---
PATIENT REFUSED AM MEDICATIONS. OFFERED X3. EDUCATED ABOUT MEDICATION BENEFITS.
[2019-08-21] MEDS: PANTOPRAZOLE 40 MG INJ VIAL IVP SCH (10:01)
[2019-08-21] MEDS ORDERED: ZOS3.375I IV (10:13)
[2019-08-21] MEDS ORDERED: LACT-81 PO (10:13)
--- NOTE | 2019-08-21 12:39 | NUR ---
PATIENT IS SITTING UP IN BED FOR LUNCH. AWAKE AND ALERT. IVF D5 NS INFUSING @80ML/HR, TOLERATING WELL VIA PICC GABRIEL. FALL PRECAUTIONS IN PLACE. CALL LIGHT WITHIN REACH. NO ACUTE DISTRESS NOTED.
[2019-08-21] MEDS: DEXT 5% /NACL 0.9% 1,000 ML IV SCH (13:53)
[2019-08-21 16:00] VITALS: BP 130/60
--- NOTE | 2019-08-21 16:50 | NUR ---
PATIENT DISCHARGED TO [facility]. REPORT GIVEN TO JENNY OLIVA. ALL BELONGINGS AND DISCHARGE PAPERS SENT WITH PATIENT.
== END 2019-08-21 14:55 | disposition home or self-care (01) | DRG 177 ==
LOC: MED 12:10 → MTU 16:17
PROVIDERS: ADMIT General Practice; ATTEND General Practice
PROC: 02HV33Z Insertion of Infusion Device into Superior Vena Cava, Percutaneous Approach (ICD-10-PCS; principal; 2019-08-19)
PROC: B548ZZA Ultrasonography of Superior Vena Cava, Guidance (ICD-10-PCS; 2019-08-19)
DX: J69.0 Pneumonitis due to inhalation of food and vomit (principal); R40.2223 Coma scale, best verbal response, incomprehensible words, at hospital admission; E44.1 Mild protein-calorie malnutrition; G90.8 Other disorders of autonomic nervous system; R62.7 Adult failure to thrive; Z68.23 Body mass index [BMI] 23.0-23.9, adult; F41.9 Anxiety disorder, unspecified; I10 Essential (primary) hypertension; R13.10 Dysphagia, unspecified; E83.42 Hypomagnesemia; B18.2 Chronic viral hepatitis C; Z88.2 Allergy status to sulfonamides; Z88.8 Allergy status to other drugs, medicaments and biological substances; G40.909 Epilepsy, unspecified, not intractable, without status epilepticus; Z86.73 Personal history of transient ischemic attack (TIA), and cerebral infarction without residual deficits; Z95.0 Presence of cardiac pacemaker
CPT/HCPCS: 36415; 70450; 71045; 74022; 80048; 80053; 80299; 81003; 82140; 83036; 83690; 83735; 84100; 84134; 84443; 84484; 85025; 85610; 85730; 87040; 87081; 93005; 97110; 97161-GP; 99285; C1751; C9113; J2060; J2543; J3475; J7030; J7042; J7060; Q0092; Q9967

== ENCOUNTER 2020-11-04 13:35 | Inpatient (IN) | payer OTHER, MEDICAID, SELFPAY ==
[~2020-11-04] VITALS: Ht 172.7 cm; Wt 71.7 kg
[~2020-11-04 13:35] MED LIST: ASPI81EC98 PO; ATI.5 PO; BISA-213 RC; DOCU-299 PO; KEP500L PO; LACT-81 PO; LISI-424 PO; MEGE40SU4 PO; ONDA4TAB PO; PANT40EC PO; ZOS3.375I IV
[2020-11-04 13:40] VITALS: BP 113/55
[2020-11-04] MEDS ORDERED: LISI10TA11 PO (14:31)
[2020-11-04] MEDS ORDERED: MULT-2112 PO (14:31)
[2020-11-04] MEDS ORDERED: KEP500L PO (14:31)
[2020-11-04] MEDS ORDERED: LAM200 PO (14:31)
[2020-11-04] MEDS ORDERED: PERA4TAB PO (14:31)
[2020-11-04] MEDS ORDERED: MELA3TER PO (14:31)
[2020-11-04] MEDS ORDERED: DOCU150L25 PO (14:31)
--- NOTE | 2020-11-04 14:40 | NUR ---
field service technician at bedside.
[2020-11-04 14:46] LABS: EOSINOPHILS # (AUTO) 0.1 K/uL (0-0.4); LYMPHOCYTES # (AUTO) 1.2 K/uL (2.0-11.5); MONOCYTES # (AUTO) 0.8 K/uL (0.8-1.0); RED BLOOD CELL COUNT(AUTO) 2.62 MIL/uL (4.20-6.10)
[2020-11-04 14:51] LABS: BASOPHILS % (AUTO) 0.3 % (0.0-2.0); EOSINOPHILS % (AUTO) 1.9 % (0.0-4.0); LYMPHOCYTES % (AUTO) 19.7 % (20.5-51.1); MEAN CORPUSCULAR HEMOGLOBIN 17 pg (27-31); MEAN CORPUSCULAR HGB CONC 27 g/dL (33-37); MEAN CORPUSCULAR VOLUME 63.5 fL (80-94); MONOCYTES % (AUTO) 13.5 % (1.7-9.3); NEUTROPHILS # (AUTO) 3.9 K/uL (1.8-7.7); NEUTROPHILS % (AUTO) 64.6 % (42.2-75.2); PLATELET COUNT (AUTO) 399 K/uL (140-450); RED CELL DISTRIBUTION WIDTH 23.6 % (11.6-13.7)
[2020-11-04 14:56] LABS: HEMATOCRIT 16.6 % (36-52); HEMOGLOBIN 4.4 g/dL (12.0-18.0)
[2020-11-04 15:08] LABS: ALBUMIN 3.4 g/dL (3.4-5.0); ANION GAP 12.4 (8-16); CARBON DIOXIDE 25.4 mmol/L (21-32); CREATININE 0.7 mg/dL (0.6-1.3); POTASSIUM 4.8 mmol/L (3.5-5.1); TOTAL BILIRUBIN 0.2 mg/dL (0.0-1.0)
[2020-11-04] MEDS ORDERED: NACL 0.9% 1,000 ML IV SCH (15:30)
[2020-11-04] MEDS ORDERED: MORPHINE SULFATE 2 MG/ML SYR IVP PRN (15:30)
[2020-11-04] MEDS ORDERED: DOCUSATE SODIUM 100 MG GELCAP PO PRN (15:30)
[2020-11-04] MEDS ORDERED: ACETAMINOPHEN 325 MG TAB PO PRN (15:30)
[2020-11-04] MEDS ORDERED: ZOLPIDEM 5 MG TAB PO PRN (15:30)
[2020-11-04] MEDS ORDERED: HYDROcodone/APAP 5/325 MG 1 TAB TAB PO PRN (15:30)
[2020-11-04] MEDS ORDERED: ONDANSETRON 4 MG/2 ML VIAL IVP PRN (15:30)
[2020-11-04] MEDS ORDERED: LORazepam 2 MG/ML VIAL IM/IVP PRN (15:30)
[2020-11-04 15:43] LABS: PROTHROMBIN TIME 11.3 secs (10.8-13.4)
[2020-11-04] MEDS ORDERED: LORATADINE 10 MG TAB PO SCH (16:15)
[2020-11-04] MEDS ORDERED: ACETAMINOPHEN EXTRA STRENGTH 500 MG TAB PO SCH (16:15)
--- NOTE | 2020-11-04 16:48 | NUR ---
REC'D REPORT FROM BRITTANY IN E.D. PT H/O ANEMIA, RA. L.UA 20G INFUSING 1 UNIT PRBC, TOLERATING INFUSION. NON VERBAL. SKIN INTACT. 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 ADMITTED FROM [facility].
--- NOTE | 2020-11-04 16:54 | NUR ---
REPORT GIVEN TO JENNY ROBERT ALL QUESTIONS ANSWERED, ENDORSED PT IN STABLE CONDITION, IN NAD, VSS. BLOOD TRANSFUSING @ 180 mL/HR; PT TOLERATING WELL.
[2020-11-04 17:24] LABS: APPEARANCE,URINE CLEAR (CLEAR); BILIRUBIN,URINE NEGATIVE (NEGATIVE); BLOOD, URINE NEGATIVE (NEGATIVE); COLOR,URINE YELLOW (YELLOW); LEUKOCYTE ESTERASE ,URINE NEGATIVE (NEGATIVE); NITRITE, URINE NEGATIVE (NEGATIVE); UGLUCOSE NEGATIVE (NEGATIVE)
--- NOTE | 2020-11-04 17:25 | NUR ---
REC'D PT FROM ED. PT ON RA. LEFT UPPER ARM 20G INFUSING 1 UNIT PRBC, SKIN INTACT, INTELLECTUALLY DISABLED ADULT MALE, H/O ANEMIA. A/Ox1, NON VERBAL WHICH IS BASELINE FOR PT. ABD SOFT NON TENDER, NO EDEMA, NO SIGN OF DISTRESS.
[2020-11-04 17:55] LABS: CHOL/HDL RATIO 2.6 (1-4.5); FREE T4 (FREE THYROXINE) 0.85 ng/dL (0.76-1.46); MAGNESIUM 2.5 mg/dL (1.8-2.4); PHOSPHORUS 3.4 mg/dL (2.5-4.9); THYROID STIMULATING HORMONE 1.83 uIU/mL (0.34-3.74)
[2020-11-04 19:30] VITALS: BP 130/70
--- NOTE | 2020-11-04 19:30 | NUR ---
ENDORSED PT TO FLAT BED KNITTER NURSE, PT STABLE
[2020-11-04] MEDS: DOCUSATE 100 MG/10 ML UDC PO SCH (21:54)
[2020-11-04] MEDS: levETIRAcetam 100 MG/ML ORASYR PO SCH (22:00)
--- NOTE | 2020-11-05 | NUR ---
PUT PT ON NPO . NO S/SX OF ACUTE DISTRESS NOTED
--- NOTE | 2020-11-05 02:00 | NUR ---
AWAKE , BT INFUSING WELL - NO BT RXN NOTED WILL CONT. TO MONITOR .
--- NOTE | 2020-11-05 03:00 | NUR ---
BT COMPLETED - NO BT RXN NOTED FOR THE WHOOLE COURSE OF TRANSFUSSION , O2 SAT WNL , FLACC O . WILL CPONT. TO MONITOR
--- NOTE | 2020-11-05 03:00 | NUR ---
V/S ASSESSED - WILL GIVE 2ND UNIT OF PRBC ORDERED .
[2020-11-05] MEDS ORDERED: DEXT 5% /NACL 0.9% 1,000 ML IV SCH (03:05)
--- NOTE | 2020-11-05 03:15 | NUR ---
2ND UNIT OF PRBC ADMINISTER , NURSE GERHARD AND ME VERIFIED THE BLOOD UNIT PROTOCOL . WILL CONT. TO MONITOR . SUSU COELHO RXN . Addendum: 11/05/20 at 0835 by Leah Muhammad RN THE ABOVE NURSE'S NOTE ARE WRONG TIME ENTRY , INSTEAD OF Fabricio COX
--- NOTE | 2020-11-05 03:45 | NUR ---
NO BT REACTION NOTED - WILL INCREASE THE RATE OF BLOOD TRANSFUSSION PROTOCOL / ORDERED . WILL CONT. TO MONITOR Addendum: 11/05/20 at 0836 by Leah Muhammad RN THE ABOVE NURSE'S NOTE IS WRONG TIMED ENTRY , INSTEAD OF 2345 - [id number]
[2020-11-05 04:00] VITALS: BP 130/71
--- NOTE | 2020-11-05 04:00 | NUR ---
MADE ROUNDS , NO S/SX OF ACUTE DISTRESS NOTED . NO LATE BTG RXN NOTED . WILL CONT. TO MONITOR
--- NOTE | 2020-11-05 06:00 | NUR ---
O2 SAT WNL . NO S/SX OF ACUTE DISTRESS NOTED . NO LATE BT RXN NOTED . WILL CONT. TO MONITOR .
[2020-11-05 06:45] LABS: BASOPHILS % (AUTO) 0.6 % (0.0-2.0); EOSINOPHILS # (AUTO) 0.1 K/uL (0-0.4); EOSINOPHILS % (AUTO) 1.8 % (0.0-4.0); HEMATOCRIT 25.1 % (36-52); HEMOGLOBIN 7.7 g/dL (12.0-18.0); LYMPHOCYTES # (AUTO) 1.6 K/uL (2.0-11.5); LYMPHOCYTES % (AUTO) 22.8 % (20.5-51.1); MEAN CORPUSCULAR HEMOGLOBIN 22 pg (27-31); MEAN CORPUSCULAR HGB CONC 31 g/dL (33-37); MEAN CORPUSCULAR VOLUME 72.5 fL (80-94); MONOCYTES # (AUTO) 0.9 K/uL (0.8-1.0); MONOCYTES % (AUTO) 13.8 % (1.7-9.3); NEUTROPHILS # (AUTO) 4.2 K/uL (1.8-7.7); PLATELET COUNT (AUTO) 321 K/uL (140-450); RED BLOOD CELL COUNT(AUTO) 3.47 MIL/uL (4.20-6.10); RED CELL DISTRIBUTION WIDTH 29.1 % (11.6-13.7); WHITE BLOOD COUNT (AUTO) 6.8 K/uL (4.8-10.8)
[2020-11-05 07:11] LABS: ALBUMIN 3.1 g/dL (3.4-5.0); ANION GAP 14.2 (8-16); CARBON DIOXIDE 23.4 mmol/L (21-32); CREATININE 0.6 mg/dL (0.6-1.3); MAGNESIUM 2.2 mg/dL (1.8-2.4); PHOSPHORUS 2.7 mg/dL (2.5-4.9); POTASSIUM 4.6 mmol/L (3.5-5.1); TOTAL BILIRUBIN 0.5 mg/dL (0.0-1.0)
--- NOTE | 2020-11-05 07:35 | NUR ---
RECEIVED REPORT FROM VESSEL SCRAPPER RN PT IS STABLE RESTING IN BED. REMAINS ON RA. ALL NEEDS MET AT THIS TIME
--- NOTE | 2020-11-05 07:35 | NUR ---
ENDORSED - PT - STABLE .
[2020-11-05 08:00] VITALS: BP 146/69
[2020-11-05] MEDS: DOCUSATE 100 MG/10 ML UDC PO SCH (08:15)
--- NOTE | 2020-11-05 08:15 | NUR ---
PT IS AWAKE AND ORIENTED X 1 TO PERSON FOLLOWS SIMPLE COMMAND. SCHEDULED MEDICATION GIVEN AND TOLERATED WELL. PT REMAINS NPO CONTINUES TO RECEIVE IVF TO LEFT ARM. AREA SLIGHTING SWOLLEN DUE TO WRAP. WRAP CHANGED TO CLOTH WRAP TO DECREASE PRESSURE. NO SIGNS OF PAIN OR DISCOMFORT. ROOM CLOSE TO NURSES STATION SAFETY MEASURES IN PLACE. WILL CONTINUE WITH POC.
[2020-11-05] MEDS: levETIRAcetam 100 MG/ML ORASYR PO SCH ×3 (08:16→22:10)
[2020-11-05] MEDS: lisinopriL 10 MG TAB PO SCH (08:17)
[2020-11-05] MEDS ORDERED: MEGESTROL 400 MG/10 ML UDC PO SCH (09:00)
[2020-11-05] MEDS ORDERED: LACTULOSE 20 GM/30 ML UDC PO SCH (09:00)
--- NOTE | 2020-11-05 09:58 | NUR ---
PATIENT HAS BEEN SCREENED AND CATEGORIZED MODERATE NUTRITION RISK. PATIENT WILL BE SEEN WITHIN 3-5 DAYS OF ADMISSION. 11/07/20 11/09/[address]
[2020-11-05] MEDS: SENNA 8.6 MG TAB PO SCH ×3 (10:00→16:55)
[2020-11-05 10:06] LABS: FOLIC ACID 15.5 ng/mL (>3.0)
--- NOTE | 2020-11-05 10:07 | NUR ---
OBTAINED TELEPHONE CONSENT FROM MOTHER OLAMIDE HERNANDEZ MOM VERBALIZED UNDERSTANDING AND HAD NO UNANSWERED QUESTIONS. PT TOLERATED LACTULOSE AND SENNA WITH NO ISSUES LAYING IN BED.
--- NOTE | 2020-11-05 10:41 | NUR ---
SOCIAL WORK NOTE: Patient's Orientation Unable To Assess Information Provided By OLAMIDE HERNANDEZ - MOTHER Comments SW WAS UNABLE TO MEET PATIENT AT BEDSIDE. SW COMPLETED ASSESSMENT WITH PATIENT'S MOTHER. MOTHER STATED THAT PATIENT NOW STAYS AT [facility] - [phone], AND PATIENT'S BUSINESS PERFORMANCE MANAGER IS RAJEEV GONZALES [phone]. MOTHER STATED PATIENT HAS NO CONSERVATOR AND THAT SHE IS MEDICAL DECISION MAKER FOR PATIENT. Captain/Check Airman, Realtionship and Phone Number OLAMIDE HERNANDEZ MOTHER [phone] GOPAL MONTEZ [phone] Healthcare Power of Ben Day Artist No Does Patient Have a POLST No Identifying Problems No Social Work Triggers Is A Social Work Consult Needed No Mandate Report Filed No Explanation Of Identifying Problems PATIENT IS A 65-YEAR-OLD MALE ADMITTED FOR SEVERE ANEMIA. PATIENT HAS PMHX OF INTELLECTUAL DISABILITY, HTN, ANEMIA, AND SEIZURE DISORDER. PATIENT IS A RESIDENT AT [facility] - [facility]. Admitted From Residential Care Pre-Admission Level Of Functioning Status Total Care Prior Resources/Services Used In Last 12 Months [facility] Prior Resources/Service Comments [facility] WORK[facility] - GOPAL MEJIA [phone] Prior DME Wheelchair Dialysis Comments N/A Patient Had Caregiver No Home Support No Caregiver Issues Financial Issues No Known Financial Issue Referral To The Financial Counselor Needed No Factors/Needs No D/C Needs Identified Pt/Rep Participated In Discharge Plan Yes Patient/Family Agress With Discharge Plan Yes Discharge Plan Comments TENTATIVE DISCHARGE PLAN IS FOR PATIENT TO RETURN TO [facility]. DC Plan Status Initiated
--- NOTE | 2020-11-05 10:54 | NUR ---
DR. LUDWIG NOTIFIED OF [facility] 7.7 MD IS AWARE PT PREVIOUSLY GOT 2 UNITS OF BLOOD NO NEW ORDERS AT THIS TIME.
[2020-11-05] MEDS ORDERED: fentaNYL citrate 0.05 MG/ML VIAL ONE (11:26)
[2020-11-05] MEDS ORDERED: diphenhydrAMINE 50 MG/ML VIAL ONE (11:26)
[2020-11-05] MEDS ORDERED: MIDAZOLAM 2 MG/2 ML VIAL ONE (11:26)
--- NOTE | 2020-11-05 11:30 | NUR ---
PT LEFT THE UNIT TO OR AT THIS TIME. PT IS AWAKE AND STABLE
[2020-11-05 12:00] VITALS: BP 152/66
[2020-11-05] MEDS: fentaNYL citrate 0.05 MG/ML VIAL IVP SCH ×2 (12:05→14:00)
[2020-11-05] MEDS: MIDAZOLAM 2 MG/2 ML VIAL IVP SCH ×2 (12:05→14:00)
[2020-11-05] MEDS: MAGNESIUM CITRATE 300 ML BTL PO SCH ×2 (12:15→13:04)
[2020-11-05] MEDS ORDERED: METOCLOPRAMIDE 10 MG/2 ML INJ VIAL ONE (12:19)
--- NOTE | 2020-11-05 12:45 | NUR ---
PT RETURNED AT THIS TIME. PT IS SLEEPY HOWEVER STABLE AT THIS TIME. HAS NEW IV ACCESS TO LEFT FOOT 22 G. WILL CONTINUE TO CLOSELY MONITOR.
[2020-11-05] MEDS: LACTULOSE 20 GM/30 ML UDC PO SCH ×5 (13:00→22:10)
[2020-11-05] MEDS ORDERED: SODIUM FERRIC GLUCONATE 125 MG in NACL 0.9% 100 ML IV SCH (13:40)
[2020-11-05] MEDS ORDERED: METOCLOPRAMIDE 10 MG/2 ML INJ VIAL IVP PRN (14:00)
--- NOTE | 2020-11-05 14:19 | NUR ---
PT REMAINS SLEEPY, REFUSING MAGNESIUM CITRATE AT THIS TIME. REQUIRED LOTS OF REDIRECTION TO TAKE SENNA AND LACTULOSE. EASILY AGITATED AT THIS TIME. ALL NEEDS MET.
[2020-11-05 16:00] VITALS: BP 117/71
--- NOTE | 2020-11-05 16:20 | NUR ---
PT TOLERATED SCHEDULED MEDICATION WITH SOME ENCOURAGEMENT. PROVISION OF CARE PROVIDED. CONTINUES TO RECEIVE IVF TO RIGHT LEFT FOOT WITH NO ISSUES. Addendum: 11/05/20 at 1751 by Lorri Padilla RN UNABLE TO COLLECT OB SAMPLE DUE TO NO BM AND UNABLE TO COLLECT MRSA DUE TO PT REFUSAL AND RESISTANCE.
[2020-11-05] MEDS: SODIUM FERRIC GLUCONATE 125 MG in NACL 0.9% 100 ML IV SCH (16:55)
[2020-11-05] MEDS: METOCLOPRAMIDE 10 MG/2 ML INJ VIAL IVP SCH (17:04)
--- NOTE | 2020-11-05 18:43 | NUR ---
PT LAYING IN BED. RECEIVING IVF. NO SIGNS OF PAIN PT IS CALM WITH RELAXED MUSCLES.
--- NOTE | 2020-11-05 19:05 | NUR ---
PT ENDORSED TO OPHTHALMOLOGY TECHNICIAN RN FOR CONTINUITY OF CARE. PT IS STABLE AT THIS TIME. LAYING IN BED. PT WAS ASSISTED WITH DINNER AND ATE 90% OF CLEAR LIQUID DIET. TOLERATED WELL WILL BE NPO AFTER MIDNIGHT.
[2020-11-05 20:00] VITALS: BP 121/71
[2020-11-05] MEDS: PANTOPRAZOLE 40 MG TABEC PO SCH ×2 (21:00→22:30)
[2020-11-05] MEDS: SUPREP BOWEL PREP KIT 354 ML SOLN.RECON PO SCH ×2 (21:00→22:10)
--- NOTE | 2020-11-05 21:30 | NUR ---
REFUSE PT TO TAKE ORAL MEDS INCLUDING BOWEL PREP SOLN . WHEN I TRYING TO GIVE ORAL MEDS PT CLOSE HIS MOUTH SO TIGHTLY . I ASKED FOR HELP FROM MY CO NURSES TO CONVINCE HIM BUT FAILED - WILL INFORMED DR. LUDWIG AND DR. BUTLER ABOUT PT'S REFUSAL . - PT FOR COLONOSCOPY SUMI .
[2020-11-05] MEDS: DEXT 5% /NACL 0.9% 1,000 ML IV SCH (23:18)
[2020-11-06] VITALS: BP 130/71
--- NOTE | 2020-11-06 | NUR ---
NO FURTHER MADE FROM DR. LUDWIG . PT FLACC 0 . RESTING COMFORTABLY ON BED .
[2020-11-06] MEDS: METOCLOPRAMIDE 10 MG/2 ML INJ VIAL IVP SCH ×4 (01:30→17:46)
[2020-11-06 04:00] VITALS: BP 130/70
--- NOTE | 2020-11-06 04:00 | NUR ---
FLACC 0 , SOFT ABD. STILL PT. REFUSE BOWEL PREP SOLN .
[2020-11-06 05:47] LABS: BASOPHILS # (AUTO) 0.1 K/uL (0.00-0.22); BASOPHILS % (AUTO) 0.6 % (0.0-2.0); EOSINOPHILS # (AUTO) 0.1 K/uL (0-0.4); EOSINOPHILS % (AUTO) 0.6 % (0.0-4.0); HEMATOCRIT 23.8 % (36-52); HEMOGLOBIN 7.4 g/dL (12.0-18.0); LYMPHOCYTES # (AUTO) 1.4 K/uL (2.0-11.5); LYMPHOCYTES % (AUTO) 14.2 % (20.5-51.1); MEAN CORPUSCULAR HEMOGLOBIN 22 pg (27-31); MEAN CORPUSCULAR HGB CONC 31 g/dL (33-37); MEAN CORPUSCULAR VOLUME 71.8 fL (80-94); MONOCYTES # (AUTO) 1.1 K/uL (0.8-1.0); MONOCYTES % (AUTO) 11.3 % (1.7-9.3); NEUTROPHILS # (AUTO) 7.3 K/uL (1.8-7.7); NEUTROPHILS % (AUTO) 73.3 % (42.2-75.2); PLATELET COUNT (AUTO) 336 K/uL (140-450); RED BLOOD CELL COUNT(AUTO) 3.31 MIL/uL (4.20-6.10)
--- NOTE | 2020-11-06 06:30 | NUR ---
RE INFORMED DR. LUDWIG ABOUT PT'S REFUSAL TO TAKE ORAL MEDS - PER DR. LUDWIG - JUST DOCUMENT THE REFUSAL . DR. BUTLER INFORMED - WILL ENDORSE.
[2020-11-06 07:37] LABS: ANION GAP 11.3 (8-16); CARBON DIOXIDE 26.5 mmol/L (21-32); CREATININE 0.6 mg/dL (0.6-1.3); POTASSIUM 3.8 mmol/L (3.5-5.1)
--- NOTE | 2020-11-06 07:40 | NUR ---
ENDORSED - PT - STABLE . PT JUST KICKED OUT THE IV SITE ON THE FOOT - FOR IV RE INSERTION - CALL ER NURSE FOR HELP - THE ER NURSE AGREE THAT SHE WILL COME TO INSERT THE IV . ENDORSED SMITH ABOUT PT'S REFUSAL ORAL MEDS .
--- NOTE | 2020-11-06 07:45 | NUR ---
RECEIVED ENDORSEMENT FROM CAD LIBRARIAN RN AT THIS TIME . PT IS STABLE IV ACCESS IS OUT AT THIS TIME. WILL CONTINUE WITH POC.
[2020-11-06 08:00] VITALS: BP 160/64
--- NOTE | 2020-11-06 08:40 | NUR ---
NEW IV ACCESS OBTAINED TO RIGHT PINKY FINGER 24 G. WITH ER NURSE ASSISTANCE. PT TOLERATED BOWEL PREP 1 BOTTLE AT THIS TIME. PT REMAINS EASILY UPSET AND UNCOOPERATIVE AT TIMES. Addendum: 11/06/20 at 1134 by Lorri Padilla RN HAS REMOVED TELE BOX SEVERAL TIMES. CURRENTLY BACK ON NO ISSUES.
[2020-11-06] MEDS: SODIUM FERRIC GLUCONATE 125 MG in NACL 0.9% 100 ML IV SCH ×3 (09:46→17:32)
[2020-11-06] MEDS: lisinopriL 10 MG TAB PO SCH (09:56)
[2020-11-06] MEDS: levETIRAcetam 100 MG/ML ORASYR PO SCH ×2 (09:56→20:53)
[2020-11-06] MEDS: PANTOPRAZOLE 40 MG TABEC PO SCH ×2 (09:56→20:54)
[2020-11-06] MEDS: LACTULOSE 20 GM/30 ML UDC PO SCH ×4 (09:56→20:53)
[2020-11-06] MEDS: SENNA 8.6 MG TAB PO SCH ×3 (09:57→16:32)
[2020-11-06] MEDS: SUPREP BOWEL PREP KIT 354 ML SOLN.RECON PO SCH (10:00)
--- NOTE | 2020-11-06 11:00 | NUR ---
SCHEDULED MEDICATION GIVEN TOLERATED WELL WITH LOTS OF PROMPT AND ENCOURAGING. LUNGS SOUNDS CLEAR ABD IS SOFT AND NONTENDER WITH ACTIVE BS AND MIDLINE SCAR TISSUE NO DISCOLORATION. SKIN INTACT. RECEIVING IVPB TO RIGHT PINKY FINGER AT THIS TIME. PER DR. LUDWIG SECOND BOTTLE OF BOWEL PREP WAS GIVEN PT TOLERATED WELL. OR NURSE WAS NOTIFIED OF PTS COMPLIANCE. PT HAS HAS 2 BOWEL MOVEMENTS AT THIS TIME.
[2020-11-06 12:00] VITALS: BP 119/66
[2020-11-06] MEDS ORDERED: metroNIDAZOLE 500 MG TAB PO SCH (12:05)
[2020-11-06] MEDS ORDERED: AMOXICILLIN 500 MG CAP PO SCH (12:05)
--- NOTE | 2020-11-06 12:30 | NUR ---
PROVISION OF CARE PROVIDED. ALL NEEDS MET.
[2020-11-06] MEDS: CLARITHROMYCIN 500 MG TAB PO SCH ×2 (13:05→20:54)
--- NOTE | 2020-11-06 14:10 | NUR ---
SPOKE WITH DR. BUTLER REGARDING COLONOSCOPY PT WILL CONTINUE TO DO BOWEL PREP SO HE CAN BE READY FOR BOWEL PREP SUMI. WILL CONTINUE WITH LAXATIVE AND CLEAR LIQUID DIET.
[2020-11-06] MEDS ORDERED: MAGNESIUM CITRATE 300 ML BTL PO SCH (14:30)
[2020-11-06 16:00] VITALS: BP 149/57
[2020-11-06] MEDS: DEXT 5% /NACL 0.9% 1,000 ML IV SCH (16:26)
--- NOTE | 2020-11-06 16:34 | NUR ---
PROVISION OF CARE PROVIDED. PT CONTINUES TO HAVE BM LAXATIVE EFFECTIVE. Addendum: 11/06/20 at 1635 by Lorri Padilla RN SCHEDULED MEDICATION GIVEN
--- NOTE | 2020-11-06 18:10 | NUR ---
PROVISION OF CARE PROVIDED.
--- NOTE | 2020-11-06 19:10 | NUR ---
RECEIVED REPORT FROM DAY SHIFT NURSE. PT IN BED RESTING. PT AWAKE, NON-VERBAL. RESPIRATIONS ARE EVEN AND UNLABORED TO ROOM AIR. ABDOMEN IS SOFT AND NON-TENDER. SKIN IS WARM, DRY, AND INTACT. PT WITH IV ACCESS ON LEFT PINKY FINGER G24 PATENT AND INTACT, IVF INFUSING WELL. NO S/SX OF PAIN OR DISCOMFORT, FLACC 0. PT KEPT COMFORTABLE. SAFETY MEASURES IN PLACE. WILL CONTINUE TO MONITOR.
--- NOTE | 2020-11-06 19:10 | NUR ---
PT ENDORSED TO BIT TRIPOLER RN FOR CONTINUITY OF CARE. PT IS STABLE RESTING IN BED ON RA.
[2020-11-06 20:00] VITALS: BP 146/65
[2020-11-06] MEDS: AMOXICILLIN 500 MG CAP PO SCH (20:54)
[2020-11-06] MEDS: metroNIDAZOLE 500 MG TAB PO SCH (20:54)
--- NOTE | 2020-11-06 20:54 | NUR ---
VS STABLE. SCHEDULED MEDS GIVEN ORDERED. PT NOT IN DISTRESS. FLACC 0. PT KEPT COMFORTABLE. SAFETY MEASURES IN PLACE. WILL CONTINUE TO MONITOR.
--- NOTE | 2020-11-06 22:29 | NUR ---
PERINEAL CARE DONE WITH RADIOACTIVITY TECHNICIAN, PT WITH BOWEL MOVEMENT. PT TOLERATED CARE WELL. PT REPOSITIONED COMFORTABLY IN BED. SAFETY MEASURES IN PLACE. WILL CONTINUE TO MONITOR.
[2020-11-07] VITALS: BP 121/64
--- NOTE | 2020-11-07 00:31 | NUR ---
VS STABLE. PT IN BED RESTING. NO S/SX OF PAIN OR DISCOMFORT NOTED. FLACC 0. PT TURNED AND REPOSITIONED. SAFETY MEASURES IN PLACE. WILL CONTINUE TO MONITOR.
[2020-11-07] MEDS: METOCLOPRAMIDE 10 MG/2 ML INJ VIAL IVP SCH ×4 (00:58→18:01)
--- NOTE | 2020-11-07 02:34 | NUR ---
PT PULLED OUT IV ACCESS, CANNULA INTACT. PT ALSO REMOVING TELE MONITOR. PT CALMED DOWN FEW MOMENTS LATER. WILL CONTINUE TO MONITOR.
[2020-11-07 04:00] VITALS: BP 137/62
[2020-11-07] MEDS: metroNIDAZOLE 500 MG TAB PO SCH ×3 (04:33→21:00)
--- NOTE | 2020-11-07 05:00 | NUR ---
NEW IV ACCESS INSERTED. IVF INFUSING WELL. PT KEPT ON NPO. PT NOW ON SOFT WRIST RESTRAINTS ORDERED DUE TO REMOVING IV ACCESS AND MONITORS. SAFETY MEASURES IN PLACE. WILL CONTINUE TO MONITOR.
[2020-11-07 06:38] LABS: ANION GAP 17.4 (8-16); CARBON DIOXIDE 20.2 mmol/L (21-32); CREATININE 0.8 mg/dL (0.6-1.3); POTASSIUM 3.6 mmol/L (3.5-5.1)
[2020-11-07 07:31] LABS: BASOPHILS % (AUTO) 0.6 % (0.0-2.0); EOSINOPHILS # (AUTO) 0.1 K/uL (0-0.4); HEMOGLOBIN 8.7 g/dL (12.0-18.0); MEAN CORPUSCULAR HGB CONC 30 g/dL (33-37); MONOCYTES # (AUTO) 0.8 K/uL (0.8-1.0); RED CELL DISTRIBUTION WIDTH 29.9 % (11.6-13.7)
[2020-11-07 07:32] LABS: EOSINOPHILS % (AUTO) 1.2 % (0.0-4.0); HEMATOCRIT 29.5 % (36-52); LYMPHOCYTES # (AUTO) 1.2 K/uL (2.0-11.5); LYMPHOCYTES % (AUTO) 16.7 % (20.5-51.1); MEAN CORPUSCULAR HEMOGLOBIN 22 pg (27-31); MEAN CORPUSCULAR VOLUME 76.2 fL (80-94); MONOCYTES % (AUTO) 10.9 % (1.7-9.3); NEUTROPHILS # (AUTO) 5.2 K/uL (1.8-7.7); NEUTROPHILS % (AUTO) 70.6 % (42.2-75.2); PLATELET COUNT (AUTO) 106 K/uL (140-450); RED BLOOD CELL COUNT(AUTO) 3.87 MIL/uL (4.20-6.10); WHITE BLOOD COUNT (AUTO) 7.4 K/uL (4.8-10.8)
--- NOTE | 2020-11-07 07:41 | NUR ---
ENDORSED TO AM SHIFT NURSE FOR CONTINUITY OF CARE
--- NOTE | 2020-11-07 07:50 | NUR ---
RECEIVED REPORT FROM LINOLEUM INSTALLER NURSE. PT IN BED RESTING. PT AWAKE, NON-VERBAL. RESPIRATIONS ARE EVEN AND UNLABORED TO ROOM AIR. SKIN IS WARM, DRY, AND INTACT. PT WITH IV ACCESS ON RAC 18 G PATENT AND INTACT, IVF INFUSING WELL. NO S/SX OF PAIN OR DISCOMFORT, FLACC 0. PT KEPT COMFORTABLE. SAFETY MEASURES IN PLACE. WILL CONTINUE TO MONITOR.
[2020-11-07 08:00] VITALS: BP 136/71
[2020-11-07] MEDS: DEXT 5% /NACL 0.9% 1,000 ML IV SCH (08:15)
[2020-11-07] MEDS: AMOXICILLIN 500 MG CAP PO SCH ×2 (09:43→21:00)
[2020-11-07] MEDS: levETIRAcetam 100 MG/ML ORASYR PO SCH ×2 (09:43→21:00)
[2020-11-07] MEDS: PANTOPRAZOLE 40 MG TABEC PO SCH ×2 (09:43→21:00)
[2020-11-07] MEDS: LACTULOSE 20 GM/30 ML UDC PO SCH ×4 (09:44→21:00)
[2020-11-07] MEDS: lisinopriL 10 MG TAB PO SCH (09:44)
[2020-11-07] MEDS: SENNA 8.6 MG TAB PO SCH ×3 (09:44→18:01)
[2020-11-07] MEDS: CLARITHROMYCIN 500 MG TAB PO SCH ×2 (09:44→21:00)
[2020-11-07] MEDS: SODIUM FERRIC GLUCONATE 125 MG in NACL 0.9% 100 ML IV SCH ×2 (09:55→13:41)
--- NOTE | 2020-11-07 10:38 | NUR ---
SPOKE TO DR. BUTLER REGARDING COLONOSCOPY PROCEDURE. HE SAID PROCEDURE WILL BE DONE ON MONDAY AND CONTINUE HIS CURRENT DIET.
[2020-11-07 12:00] VITALS: BP 136/81
--- NOTE | 2020-11-07 13:00 | NUR ---
ALL SCHEDULED MEDS GIVEN. PT IS STABLE. NO SIGNS OF DISTRESS NOTED. WILL CONTINUE TO MONITOR.
--- NOTE | 2020-11-07 15:45 | NUR ---
CHECKED ON PATIENT. PATIENT IS LAYING IN BED. NO SIGNS OF DISTRESS NOTED. WILL CONTINUE TO MONITOR.
[2020-11-07 16:00] VITALS: BP 148/75
--- NOTE | 2020-11-07 18:10 | NUR ---
ALL SCHEDULED MEDS GIVEN. PT IS STABLE. NO SIGNS OF DISTRESS NOTED. WILL CONTINUE TO MONITOR.
--- NOTE | 2020-11-07 19:00 | NUR ---
PATIENT RECEIVED IN BED ALERT AND ORIENTED X 1. MAXIMAL CARE REQUIRED WITH ADL'S AND TRANSFERS. PATIENT ATTEMPTING TO PULL OUT IV LINES. BILATERAL WRIST RESTRAINT IN PLACE. FALL AND SAFETY PRECAUTIONS MAINTAINED. DISCUSSED WITH PATIENT FALL AND SAFETY PRECAUTIONS, MEDICATION MANAGEMENT AND RN PLAN OF CARE. PATIENT REQUIRES PROMPTING AND REDIRECTION TO SAFETY. REMAIN NPO EXCEPT MEDICATION. PT POSITIVE H PYLORIC. ABT THERAPY CONTINUED WITH NO ADVERSE EFFECTS NOTED. BOWEL PREP CONTINUED. INCONTINENT OF BOWELS X2. NO ACUTE DISTRESS NOTED. RN TO CONTINUE WITH PLAN OF CARE.
--- NOTE | 2020-11-07 19:45 | NUR ---
ENDORSED TO ASSISTANT TRACK COACH NURSE FOR CONTINUITY OF CARE. PT IS STABLE.
[2020-11-07 20:00] VITALS: BP 137/62
[2020-11-07] MEDS ORDERED: MAGNESIUM CITRATE 300 ML BTL PO SCH (20:00)
[2020-11-08] VITALS: BP 136/68
--- NOTE | 2020-11-08 | NUR ---
PATIENT SLEEPING DURING ROUNDING, EASILY AROUSED. MAXIMAL CARE RENDERED. REPOSITIONED Q 2 HOURS PRN. VSS. NO ACUTE DISTRESS NOTED. MEDICAL MANAGEMENT ONGOING.
[2020-11-08 04:00] VITALS: BP 140/62
--- NOTE | 2020-11-08 05:00 | NUR ---
SITE FOREMAN MD NOTIFIED TO RENEW RESTRAINT ORDER BY PROMOTIONS OFFICER. ORDER OBTAINED PER CHARGE NURSE. PT REMAINS STABLE. Addendum: 11/09/20 at 0915 by Agency 02 JENNY ALVARADO ERROR-NOTE MEANT TO FILED 0500 ON 11/09/20.
[2020-11-08] MEDS: metroNIDAZOLE 500 MG TAB PO SCH ×3 (05:51→21:08)
[2020-11-08] MEDS: METOCLOPRAMIDE 10 MG/2 ML INJ VIAL IVP SCH ×5 (05:52→23:54)
--- NOTE | 2020-11-08 07:30 | NUR ---
RECEIVED REPORT FROM TERMITE RENEWAL INSPECTOR NURSE. PT IN BED RESTING. PT AWAKE, NON-VERBAL. RESPIRATIONS ARE EVEN AND UNLABORED TO ROOM AIR. SKIN IS WARM, DRY, AND INTACT. PT WITH IV ACCESS ON LFA 24 G PATENT AND INTACT. NO S/SX OF PAIN OR DISCOMFORT, FLACC 0. PT KEPT COMFORTABLE. SAFETY MEASURES IN PLACE. WILL CONTINUE TO MONITOR.
[2020-11-08 08:00] VITALS: BP 129/60
[2020-11-08] MEDS: LACTULOSE 20 GM/30 ML UDC PO SCH ×4 (08:52→21:00)
[2020-11-08] MEDS: levETIRAcetam 100 MG/ML ORASYR PO SCH ×2 (08:55→21:28)
[2020-11-08] MEDS: SENNA 8.6 MG TAB PO SCH ×3 (08:56→17:58)
[2020-11-08] MEDS: AMOXICILLIN 500 MG CAP PO SCH ×2 (08:56→21:30)
[2020-11-08] MEDS: POTASSIUM CHLORIDE 20% 40 MEQ/15 ML UDC PO SCH (08:56)
[2020-11-08] MEDS: PANTOPRAZOLE 40 MG TABEC PO SCH ×2 (08:56→21:05)
[2020-11-08] MEDS: lisinopriL 10 MG TAB PO SCH (08:56)
[2020-11-08] MEDS: CLARITHROMYCIN 500 MG TAB PO SCH ×2 (08:56→21:30)
--- NOTE | 2020-11-08 09:00 | NUR ---
ALL SCHEDULED MEDS GIVEN. PT IS STABLE. NO SIGNS OF DISTRESS NOTED. WILL CONTINUE TO MONITOR.
[2020-11-08] MEDS: SODIUM FERRIC GLUCONATE 125 MG in NACL 0.9% 100 ML IV SCH ×2 (09:04→21:22)
[2020-11-08 11:14] LABS: BASOPHILS # (AUTO) 0.1 K/uL (0.00-0.22); BASOPHILS % (AUTO) 1.4 % (0.0-2.0); EOSINOPHILS # (AUTO) 0.1 K/uL (0-0.4); EOSINOPHILS % (AUTO) 0.5 % (0.0-4.0); HEMATOCRIT 24.6 % (36-52); HEMOGLOBIN 7.4 g/dL (12.0-18.0); LYMPHOCYTES # (AUTO) 1.2 K/uL (2.0-11.5); LYMPHOCYTES % (AUTO) 11.5 % (20.5-51.1); MEAN CORPUSCULAR HEMOGLOBIN 23 pg (27-31); MEAN CORPUSCULAR HGB CONC 30 g/dL (33-37); MEAN CORPUSCULAR VOLUME 75.7 fL (80-94); MONOCYTES % (AUTO) 9.7 % (1.7-9.3); NEUTROPHILS # (AUTO) 7.9 K/uL (1.8-7.7); NEUTROPHILS % (AUTO) 76.9 % (42.2-75.2); PLATELET COUNT (AUTO) 365 K/uL (140-450); RED BLOOD CELL COUNT(AUTO) 3.26 MIL/uL (4.20-6.10); RED CELL DISTRIBUTION WIDTH 30.6 % (11.6-13.7); WHITE BLOOD COUNT (AUTO) 10.3 K/uL (4.8-10.8)
[2020-11-08 11:22] LABS: ANION GAP 16.2 (8-16); CARBON DIOXIDE 23.2 mmol/L (21-32); CREATININE 0.8 mg/dL (0.6-1.3); POTASSIUM 3.4 mmol/L (3.5-5.1)
[2020-11-08 12:00] VITALS: BP 141/68
--- NOTE | 2020-11-08 12:10 | NUR ---
ALL SCHEDULED MEDS GIVEN. PT IS STABLE. NO DISTRESS NOTED. WILL CONTINUE TO MONITOR.
--- NOTE | 2020-11-08 14:30 | NUR ---
CHECKED ON PATIENT. PATIENT IS STABLE. NO DISTRESS NOTED. WILL CONTINUE TO MONITOR.
[2020-11-08 16:00] VITALS: BP 146/63
--- NOTE | 2020-11-08 16:15 | NUR ---
CHECKED ON PATIENT. PATIENT IS STABLE. NO DISTRESS NOTED. WILL CONTINUE TO MONITOR.
[2020-11-08] MEDS ORDERED: SODIUM PHOSPHATE 118 ML ENEM RC SCH (16:35)
--- NOTE | 2020-11-08 18:30 | NUR ---
ADMINISTERED FLEET ENEMA. PATIENT PRODUCED BOWEL MOVEMENT AFTER ADMINISTRATION
--- NOTE | 2020-11-08 19:45 | NUR ---
ENDORSED TO ORANGE GROWER NURSE FOR CONTINUITY OF CARE. PT IS STABLE.
[2020-11-08 20:00] VITALS: BP 163/62
[2020-11-08] MEDS ORDERED: SUPREP BOWEL PREP KIT 354 ML SOLN.RECON PO SCH (21:00)
[2020-11-09] VITALS: BP 141/64
[2020-11-09 04:00] VITALS: BP 150/62
[2020-11-09] MEDS: metroNIDAZOLE 500 MG TAB PO SCH ×3 (05:31→21:55)
[2020-11-09] MEDS: METOCLOPRAMIDE 10 MG/2 ML INJ VIAL IVP SCH (05:31)
[2020-11-09 06:29] LABS: BASOPHILS # (AUTO) 0.1 K/uL (0.00-0.22); BASOPHILS % (AUTO) 0.9 % (0.0-2.0); EOSINOPHILS % (AUTO) 0.2 % (0.0-4.0); HEMATOCRIT 26.1 % (36-52); HEMOGLOBIN 7.7 g/dL (12.0-18.0); LYMPHOCYTES # (AUTO) 0.8 K/uL (2.0-11.5); LYMPHOCYTES % (AUTO) 11.3 % (20.5-51.1); MEAN CORPUSCULAR HEMOGLOBIN 23 pg (27-31); MEAN CORPUSCULAR HGB CONC 30 g/dL (33-37); MEAN CORPUSCULAR VOLUME 78.7 fL (80-94); MONOCYTES # (AUTO) 0.9 K/uL (0.8-1.0); MONOCYTES % (AUTO) 11.6 % (1.7-9.3); NEUTROPHILS # (AUTO) 5.6 K/uL (1.8-7.7); PLATELET COUNT (AUTO) 359 K/uL (140-450); RED BLOOD CELL COUNT(AUTO) 3.31 MIL/uL (4.20-6.10); RED CELL DISTRIBUTION WIDTH 30.1 % (11.6-13.7); WHITE BLOOD COUNT (AUTO) 7.3 K/uL (4.8-10.8)
[2020-11-09 07:01] LABS: ANION GAP 16.8 (8-16); CARBON DIOXIDE 21.1 mmol/L (21-32); CREATININE 0.7 mg/dL (0.6-1.3)
--- NOTE | 2020-11-09 08:19 | NUR ---
PATIENT IN BED RESTING COMFORTABLY, PRESENTS CALM AND COOPERATIVE, ABLE TO EXPRESS NEEDS. RESPIRATIONS ARE NON-LABORED. IV ACCESS IS PATENT, DRY AND INTACT. SKIN IS CLEAN,W ARM AND DRY TO TOUCH. BED IS LOCKED IN LOWEST POSITION, CALL LIGHT IN REACH. NURSE WILL CONTINUE TO MONITOR FOR CHANGES IN STATUS.
[2020-11-09] MEDS: AMOXICILLIN 500 MG CAP PO SCH ×2 (09:00→21:56)
[2020-11-09] MEDS: CLARITHROMYCIN 500 MG TAB PO SCH ×2 (09:00→21:55)
[2020-11-09] MEDS: LACTULOSE 20 GM/30 ML UDC PO SCH ×2 (09:00→11:55)
[2020-11-09] MEDS: lisinopriL 10 MG TAB PO SCH (09:00)
[2020-11-09 09:05] LABS: POTASSIUM 2.9 mmol/L (3.5-5.1)
[2020-11-09] MEDS: POTASSIUM CHLORIDE 20% 40 MEQ/15 ML UDC PO SCH (09:43)
[2020-11-09] MEDS: levETIRAcetam 100 MG/ML ORASYR PO SCH ×2 (09:43→21:54)
[2020-11-09] MEDS: SENNA 8.6 MG TAB PO SCH ×3 (09:44→21:56)
[2020-11-09] MEDS: PANTOPRAZOLE 40 MG TABEC PO SCH ×2 (09:44→21:55)
[2020-11-09 10:57] VITALS: BP 92/62
[2020-11-09] MEDS ORDERED: diphenhydrAMINE 50 MG/ML VIAL ONE (10:59)
[2020-11-09] MEDS ORDERED: MIDAZOLAM 2 MG/2 ML VIAL ONE (10:59)
[2020-11-09] MEDS ORDERED: fentaNYL citrate 0.05 MG/ML VIAL ONE (10:59)
--- NOTE | 2020-11-09 11:16 | NUR ---
Notified Dr. Zamora regarding Na+ =160, K+= 2.9, awaiting follow up orders.
--- NOTE | 2020-11-09 11:30 | NUR ---
PATIENT RESTING COMFORTABLY, NO C/O PAIN OR DISCOMFORT, SKIN IS CLEAN, WARM AND DRY TO TOUCH. RESPIRATIONS NON-LABORED. SKIN IS CLEAN, WARM AND DRY TO TOUCH. BED IS LOCKED IN LOWEST POSITION, CALL LIGHT IN REACH. NURSE WILL CONTINUE CARE AND MONITOR FOR CHANGES IN STATUS.
[2020-11-09] MEDS ORDERED: KCL 20 MEQ/WATER INJ PREMIX 200 ML IV SCH ×2 (11:55→12:00)
[2020-11-09] MEDS ORDERED: MIDAZOLAM 2 MG/2 ML VIAL IVP ONE (11:57)
[2020-11-09] MEDS ORDERED: fentaNYL citrate 0.05 MG/ML VIAL IVP ONE (11:57)
[2020-11-09] MEDS ORDERED: GLUCAGON 1 MG VIAL IVP ONE (12:45)
[2020-11-09] MEDS ORDERED: GLUCAGON 1 MG VIAL ONE ×2 (13:11→13:25)
--- NOTE | 2020-11-09 15:57 | NUR ---
PATIENT RESTING COMFORTABLY, NO C/ O PAIN OR DISCOMFORT. RESPIRATIONS ARE NON-LABORED. SKIN IS CLEAN WARM AND DRY TO TOUCH. BED IS LOCKED IN LOWEST POSITION FOR SAFETY, CALL LIGHT IN REACH. NURSE WILL CONTINUE TO MONITOR FOR CHANGES IN STATUS.
[2020-11-09 15:59] VITALS: BP 152/64
--- NOTE | 2020-11-09 16:20 | NUR ---
DC [age] YRS OLD MALE PATIENT WAS ADMITTED FROM [facility] WITH A DX OF SEVER ANEMIA. H/H ON ADMISSION 4.4/16.6 TRANSFUSED 2 UNITS PRBS AND H/H 7.7/26.1. RAPID COVID TEST NEGATIVE. DR BUTLER PERFORMED COLONOSCOPY , H PYLORIC POSITIVE, TREATED WITH AMOXIL AND FLAGYL IV ABX. CONSIDER REPEAT COLONOSCOPY IN 6-12 MONTHS DEPENDING UPON THE PATHOLOGY REPORT. DC PLAN TO GO HOME WHEN STABLE CM TO FOLLOW Addendum: 11/11/20 at 1306 by Berenice Irizarry CM DC PHYSICAL DIRECTOR: CM SPOKE TO PATIENTS MOTHER AND [facility] BOAT CLEANER REGARDING DC TO SNF. THEY ARE AGREEABLE, ORDER FAXED TO [facility]. Addendum: 11/11/20 at 1313 by Berenice Irizarry CM DC PHYSICAL DIRECTOR: ISABELLA GOMEZ AT [facility] THEY ARE ABLE TO ACCEPT THIS PATIENT. Addendum: 11/11/20 at 1316 by Berenice Irizarry CM DC PHYSICAL DIRECTOR: PATIENT WILL GO TO ROOM [facility] UNDER DR. LUDWIG. ISABELLA GOMEZ WE CAN BILL THEM FOR TRANSPORTATION. Addendum: 11/11/20 at 1335 by Berenice Irizarry CM DC PHYSICAL DIRECTOR: SPOKE TO PATIENTS MOTHER OLAMIDE [phone] TO NOTIFY HER THAT PATIENT HAS BEEN ACCEPTED AT [facility] AND WILL BE DISCHARGED TODAY. SHE HAS NO FURTHER QUESTIONS. ALSO CONTACTED THE NURSE AASHISH AT [facility] AND [facility] BOAT CLEANER GOPAL OF DISCHARGE. Addendum: 11/11/20 at 1338 by Berenice Irizarry CM SHIRA FERGUSON: TRANSPORTATION HAS BEEN SET UP WITH [facility] [phone] FOR 7:00 PM. NOTIFIED JENNY MEDEROS. Addendum: 11/11/20 at 1339 by Berenice Irizarry CM [address] [place] [id number] ROOM 53-C DR. LUDWIG
--- NOTE | 2020-11-09 17:08 | NUR ---
11/09/20 RD INITIAL ASSESSMENT COMPLETED PLEASE REFER TO NUTRITION ASSESSMENT UNDER CARE ACTIVITY FOR ESTIMATED NUTRITIONAL NEEDS. 1. CONTINUE FULL LIQUID DIET TOLERATED 2. RECOMMEND ENSURE TID 3. PROVIDE ASSISTANCE WITH MEALS 4. ADVANCE DIET WHEN MEDICALLY STABLE, PREVIOUSLY ON PUREE DIET 5. RD TO FOLLOW-UP 2-3 DAYS, HIGH RISK [address]
[2020-11-09 19:00] VITALS: BP 146/64
--- NOTE | 2020-11-09 19:00 | NUR ---
RN DISCUSSED WITH PATIENT MEDICAL PLAN OF CARE. DISCUSSED MEDICATION REGIMEN, FALL AND SAFETY PRECAUTIONS, FALL AND SAFETY INTERVENTION AND PLAN OF CARE. PATIENT IN BED RESTING COMFORTABLY, PRESENTS CALM AND COOPERATIVE, ABLE TO EXPRESS NEEDS. RESPIRATIONS ARE NON-LABORED. IV ACCESS IS PATENT, DRY AND INTACT. SKIN IS CLEAN,W ARM AND DRY TO TOUCH. BED IS LOCKED IN LOWEST POSITION, CALL LIGHT IN REACH. NURSE WILL CONTINUE TO MONITOR FOR CHANGES IN STATUS.
--- NOTE | 2020-11-09 19:14 | NUR ---
PATIENT RESTING COMFORTABLY, NO C/O PAIN OR DISCOMFORT. RESPIRATIONS ARE NON-LABORED. SKIN IS CLEAN, WARM AND DRY TO TOUCH . IV ACCESS IS PATENT, DRY AND INTACT. BED IS LOCKED IN LOWEST POSITION, CALL LIGHT IN REACH. PATIENT ENDORSED TO WATER CARTER NURSE.
[2020-11-09 20:00] VITALS: BP 159/69
[2020-11-10] VITALS: BP 147/62
--- NOTE | 2020-11-10 | NUR ---
PATIENT RESTING COMFORTABLY DURING ROUNDING. PATIENT ASSISTED WITH ADLS AND TRANSFERS. NO ACUTE DISTRESS NOTED.
[2020-11-10 00:30] VITALS: BP 142/68
[2020-11-10 04:00] VITALS: BP_SYST 140; BP_SYST 142; BP_DIAS 61; BP_DIAS 62
[2020-11-10] MEDS: metroNIDAZOLE 500 MG TAB PO SCH ×3 (05:00→20:54)
[2020-11-10 05:56] LABS: BASOPHILS # (AUTO) 0.1 K/uL (0.00-0.22); BASOPHILS % (AUTO) 0.5 % (0.0-2.0); EOSINOPHILS # (AUTO) 0.1 K/uL (0-0.4); EOSINOPHILS % (AUTO) 0.4 % (0.0-4.0); HEMATOCRIT 27.1 % (36-52); HEMOGLOBIN 7.9 g/dL (12.0-18.0); LYMPHOCYTES # (AUTO) 1.1 K/uL (2.0-11.5); LYMPHOCYTES % (AUTO) 8.8 % (20.5-51.1); MEAN CORPUSCULAR HEMOGLOBIN 24 pg (27-31); MEAN CORPUSCULAR HGB CONC 29 g/dL (33-37); MEAN CORPUSCULAR VOLUME 81.1 fL (80-94); MONOCYTES # (AUTO) 1.3 K/uL (0.8-1.0); MONOCYTES % (AUTO) 10.1 % (1.7-9.3); NEUTROPHILS # (AUTO) 10.1 K/uL (1.8-7.7); NEUTROPHILS % (AUTO) 80.2 % (42.2-75.2); PLATELET COUNT (AUTO) 345 K/uL (140-450); RED BLOOD CELL COUNT(AUTO) 3.35 MIL/uL (4.20-6.10); RED CELL DISTRIBUTION WIDTH 30.3 % (11.6-13.7); WHITE BLOOD COUNT (AUTO) 12.6 K/uL (4.8-10.8)
--- NOTE | 2020-11-10 06:13 | NUR ---
RESTRAINTS DISCONTINUED Addendum: 11/10/20 at 0613 by Agency 04 RN RN Amended: Links added.
[2020-11-10 06:40] LABS: ANION GAP 15.3 (8-16); CARBON DIOXIDE 22.8 mmol/L (21-32); CREATININE 0.8 mg/dL (0.6-1.3); POTASSIUM 3.1 mmol/L (3.5-5.1)
--- NOTE | 2020-11-10 07:39 | NUR ---
RECEIVED PATIENT IN BED RESTING COMFORTABLY, PRESENTS CALM AND COOPERATIVE. NO C/O PAIN OR DISCOMFORT. RESPIRATIONS ARE NON-LABORED. SKIN IS CLEAN WARM AND DRY TO TOUCH. IV ACCESS IS PATENT, DRY AND INTACT. NO S/SX OF REDNESS/SWELLING OR PAIN NOTED. BED IS LOCKED IN LOWEST POSITION, CALL LIGHT IN REACH. NURSE WILL CONTINUE CARE AND MONITOR FOR CHANGES IN STATUS.
[2020-11-10] MEDS ORDERED: NACL 0.45% 1,000 ML IV SCH (08:50)
[2020-11-10] MEDS: LACTULOSE 20 GM/30 ML UDC PO SCH (09:00)
[2020-11-10] MEDS: levETIRAcetam 100 MG/ML ORASYR PO SCH ×2 (09:01→20:59)
[2020-11-10] MEDS: lisinopriL 10 MG TAB PO SCH (09:01)
[2020-11-10] MEDS: PANTOPRAZOLE 40 MG TABEC PO SCH ×2 (09:01→20:57)
[2020-11-10] MEDS: CLARITHROMYCIN 500 MG TAB PO SCH ×2 (09:20→20:56)
[2020-11-10] MEDS: AMOXICILLIN 500 MG CAP PO SCH ×2 (09:20→20:55)
[2020-11-10] MEDS ORDERED: POTASSIUM CHLORIDE 10 MEQ TABER PO PRN (09:20)
[2020-11-10 11:04] VITALS: BP 126/72
[2020-11-10] MEDS ORDERED: POTASSIUM CHLORIDE 20% 40 MEQ/15 ML UDC GT SCH (15:20)
[2020-11-10] MEDS ORDERED: DEXT 5% / NACL 0.2% 1,000 ML IV SCH (15:20)
--- NOTE | 2020-11-10 16:21 | NUR ---
PATIENT CONTINUES TO REFUSE IV INSERTION, ATTEMPTING TO BITE STAFF DURING PROCESS.
--- NOTE | 2020-11-10 16:26 | NUR ---
PATIENT IN BED RESTING COMFORTABLY, PRESENTS CALM AND COOPERATIVE. NO C/O PAIN OR DISCOMFORT. RESPIRATIONS ARE NON-LABORED. SKIN IS CLEAN WARM AND DRY TO TOUCH. BED IS LOCKED IN LOWEST POSITION, CALL LIGHT IN REACH. NURSE WILL CONTINUE CARE AND MONITOR FOR CHANGES IN STATUS.
[2020-11-10] MEDS: FERROUS SULFATE 325 MG TABEC PO SCH (17:00)
[2020-11-10 18:20] VITALS: BP 133/89
--- NOTE | 2020-11-10 18:52 | NUR ---
PATIENT RESTING COMFORTABLY, NO C/O PAIN OR DISCOMFORT. RESPIRATIONS ARE NON-LABORED. SKIN IS CLEAN WARM AND DRY TO TOUCH. IV ACCESS IS PATENT, DRY AND INTACT. NO S/SX OF REDNESS/SWELLING OR PAIN NOTED. BED IS LOCKED IN LOWEST POSITION, CALL LIGHT IN REACH. NURSE WILL CONTINUE CARE AND MONITOR FOR CHANGES IN STATUS. PATIENT ENDORSED TO CONSERVATION WORKER NURSE.
[2020-11-10 20:00] VITALS: BP 132/55
[2020-11-10] MEDS: SENNA 8.6 MG TAB PO SCH (20:58)
[2020-11-11] VITALS: BP 125/52
[2020-11-11 04:00] VITALS: BP 103/72
--- NOTE | 2020-11-11 04:47 | NUR ---
Patient was received from a shift during walk through. Patient had 0 s/s of distress and was breathing evenly and unlabored on room air and was resting comfortably. Patient was cooperative and received all night time medications. Patient also received a CT as ordered and tolerated the procedure well. Patient rested comfortable throughout the shift and continued to show 0 s/s of distress and breathing remained unlabored. Nurse completed patient MRSA swab during the shift. Patient did not have a bowel movement during the shift so No stool specimen was collected for the ordered occult blood test needed. Will continue to monotor patient till the end of shift and will endorse care to am shift nurse for continuity of care.
[2020-11-11] MEDS: metroNIDAZOLE 500 MG TAB PO SCH ×3 (06:14→20:06)
[2020-11-11] MEDS: FERROUS SULFATE 325 MG TABEC PO SCH ×3 (08:00→17:25)
[2020-11-11] MEDS ORDERED: POTASSIUM CHLORIDE 20% 40 MEQ/15 ML UDC GT SCH (09:00)
[2020-11-11] MEDS: CLARITHROMYCIN 500 MG TAB PO SCH ×2 (09:24→20:06)
[2020-11-11] MEDS: AMOXICILLIN 500 MG CAP PO SCH ×2 (09:24→20:06)
[2020-11-11] MEDS: LACTULOSE 20 GM/30 ML UDC PO SCH (09:24)
[2020-11-11] MEDS: lisinopriL 10 MG TAB PO SCH (09:25)
[2020-11-11] MEDS: levETIRAcetam 100 MG/ML ORASYR PO SCH ×2 (09:25→20:06)
[2020-11-11] MEDS: PANTOPRAZOLE 40 MG TABEC PO SCH ×2 (09:25→20:07)
[2020-11-11 10:02] VITALS: BP 98/68
[2020-11-11 10:05] VITALS: BP 152/78
[2020-11-11 10:10] LABS: ANION GAP 12.7 (8-16); CARBON DIOXIDE 25.4 mmol/L (21-32); CREATININE 0.7 mg/dL (0.6-1.3); POTASSIUM 4.1 mmol/L (3.5-5.1)
[2020-11-11 10:27] LABS: HEMATOCRIT 27.7 % (36-52); HEMOGLOBIN 7.7 g/dL (12.0-18.0); MEAN CORPUSCULAR HEMOGLOBIN 24 pg (27-31); MEAN CORPUSCULAR HGB CONC 28 g/dL (33-37); MEAN CORPUSCULAR VOLUME 84.2 fL (80-94); PLATELET COUNT (AUTO) 311 K/uL (140-450); RED BLOOD CELL COUNT(AUTO) 3.29 MIL/uL (4.20-6.10); RED CELL DISTRIBUTION WIDTH 34.6 % (11.6-13.7); WHITE BLOOD COUNT (AUTO) 7.7 K/uL (4.8-10.8)
[2020-11-11 10:28] LABS: MAGNESIUM 2.2 mg/dL (1.8-2.4); PHOSPHORUS 2.2 mg/dL (2.5-4.9)
[2020-11-11 11:04] LABS: BASOPHILS % (MANUAL) 1 % (0-2); EOSINOPHILS % (MANUAL) 3 % (0-4); MONOCYTES % (MANUAL) 9 % (5-12)
[2020-11-11 11:05] LABS: LYMPHOCYTES % (MANUAL) 18 % (20-46)
[2020-11-11] MEDS ORDERED: METR500T1 PO (13:47)
[2020-11-11] MEDS ORDERED: CLAR500T14 PO (13:47)
[2020-11-11] MEDS ORDERED: AMOX500C25 PO (13:47)
[2020-11-11] MEDS ORDERED: PANT40EC PO (13:47)
--- NOTE | 2020-11-11 17:45 | NUR ---
SPOKE WITH DAYANARA MATA, REPORT GIVEN @ [phone]. AWAITING TRANSPORT.
--- NOTE | 2020-11-11 18:46 | NUR ---
PATIENT IN BED RESTING COMFORTABLY, PRESENTS CALM AND COOPERATIVE. NO C/O PAIN OR DISCOMFORT. RESPIRATIONS ARE NON-LABORED. SKIN IS CLEAN WARM AND DRY TO TOUCH. IV ACCESS IS PATENT, DRY AND INTACT. NO S/SX OF REDNESS/SWELLING OR PAIN NOTED. BED IS LOCKED IN LOWEST POSITION, CALL LIGHT IN REACH. PATIENT ENDORSED TO PROFESSOR OF SPECIAL EDUCATION NURSE.
--- NOTE | 2020-11-11 19:30 | NUR ---
RECEIVED BEDSIDE REPORT FROM DAY RN. PT IS APHASIC HX MENTALLY DELAYED AND SZ. DX ANEMIA PT HAD COLOSCOPY RESULTS SHOWED H PYLORI PT TO BE D/C TO [facility] WAITING FOR [facility] TRANSPORTATION. UNDER CARE OF DR LUDWIG. WILL CONTINUE PO ABX THERE. SKIN IS INTACT. NO IV. ON STANDARD ISOLATION. BEDBOUND. POC DISCUSSED WITH PT. UNABLE TO COMPREHEND. CALL LIGHT IS WITHIN REACH. SAFETY MEASURES ARE IN PLACE. WILL CONTINUE TO MONITOR.
--- NOTE | 2020-11-11 20:06 | NUR ---
PATIENT IS SITTING IN BED WATCHING TV. NO S/S OF DISTRESS. RESPIRATIONS ARE EQUAL AND UNLABORED ON ROOM AIR. JEET MEDICATION CRUSHED AND GIVEN WITH APPLE JUICE. PT TOLERATED WELL. FLACC 0 PT APPEARS CALM AND COOPERATIVE WITH NURSE. PT FOLLOWS SIMPLE COMMANDS. SAFETY MEASURES ARE IN PLACE. WILL CONTINUE TO MONITOR.
[2020-11-11] MEDS: SENNA 8.6 MG TAB PO SCH (20:07)
--- NOTE | 2020-11-11 21:41 | NUR ---
ARM BAND REMOVED, D/C PAPERS AND PT'S BELONGINGS GIVEN TO [facility] TRANSPORTATION. TELE BOX REMOVED. PT LEFT IN STABLE CONDITION SMILING. NO S/S OF DISTRESS.
== END 2020-11-11 21:41 | DRG 871 ==
LOC: MED 13:35 → MTU 15:33
PROVIDERS: ADMIT Family Medicine; ATTEND Family Medicine
PROC: 30233N1 Transfusion of Nonautologous Red Blood Cells into Peripheral Vein, Percutaneous Approach (ICD-10-PCS; 2020-11-04)
PROC: 0DB58ZX Excision of Esophagus, Via Natural or Artificial Opening Endoscopic, Diagnostic (ICD-10-PCS; 2020-11-05)
PROC: 0DB68ZX Excision of Stomach, Via Natural or Artificial Opening Endoscopic, Diagnostic (ICD-10-PCS; 2020-11-05)
PROC: 0W3P8ZZ Control Bleeding in Gastrointestinal Tract, Via Natural or Artificial Opening Endoscopic (ICD-10-PCS; 2020-11-09)
PROC: 0DBG8ZZ Excision of Left Large Intestine, Via Natural or Artificial Opening Endoscopic (ICD-10-PCS; principal; 2020-11-09 11:00)
PROC: 0DBN8ZZ Excision of Sigmoid Colon, Via Natural or Artificial Opening Endoscopic (ICD-10-PCS; 2020-11-09 11:00)
PROC: 0DBF8ZZ Excision of Right Large Intestine, Via Natural or Artificial Opening Endoscopic (ICD-10-PCS; 2020-11-09 11:00)
DX: A41.9 Sepsis, unspecified organism (principal); G93.41 Metabolic encephalopathy; E87.1 Hypo-osmolality and hyponatremia; E87.0 Hyperosmolality and hypernatremia; K92.2 Gastrointestinal hemorrhage, unspecified; D50.9 Iron deficiency anemia, unspecified; I10 Essential (primary) hypertension; G40.909 Epilepsy, unspecified, not intractable, without status epilepticus; F79 Unspecified intellectual disabilities; K59.04 Chronic idiopathic constipation; B96.81 Helicobacter pylori [H. pylori] as the cause of diseases classified elsewhere; K44.9 Diaphragmatic hernia without obstruction or gangrene; K21.00 Gastro-esophageal reflux disease with esophagitis, without bleeding; E87.6 Hypokalemia; D12.5 Benign neoplasm of sigmoid colon; E86.0 Dehydration; Z20.822 Contact with and (suspected) exposure to COVID-19; Z88.8 Allergy status to other drugs, medicaments and biological substances; Z79.82 Long term (current) use of aspirin; Z79.899 Other long term (current) drug therapy
CPT/HCPCS: 36415; 36430; 45381; 70450; 71045; 74018; 80048; 80053; 81003; 82150; 82550; 82607; 82728; 82746; 82977; 83036; 83540; 83605; 83615; 83690; 83735; 83880; 84100; 84439; 84443; 84484; 85025; 85045; 85379; 85610; 85651; 85730; 86140; 86677; 86886; 86900; 86901; 86920; 87081; 88305; 88312; 88313; 88342; 93005; 96374; 99285; J1200; J1610; J2060; J2250; J2765; J2916; J3010; J3480; J7030; J7042; P9016

== ENCOUNTER 2020-11-30 19:38 | Emergency (ER) | payer OTHER, MEDICAID, SELFPAY ==
[~2020-11-30] VITALS: Ht 170.2 cm; Wt 70.8 kg
[~2020-11-30 19:38] MED LIST changes: +AMOX500C25 PO; -ATI.5 PO; -BISA-213 RC; +CLAR500T14 PO; -DOCU-299 PO; +DOCU150L25 PO; -LACT-81 PO; +LAM200 PO; -LISI-424 PO; +LISI-486 PO; +MELA3TER PO; +METR500T1 PO; +MULT-2112 PO; -ONDA4TAB PO; +PERA4TAB PO; -ZOS3.375I IV
--- NOTE | 2020-11-30 19:50 | NUR ---
PT MARTINEZ SMITH. TAKEN TO BED 11
--- NOTE | 2020-11-30 19:51 | NUR ---
Dr. Minaya examining patient.
[2020-11-30 19:55] VITALS: BP 132/62
[2020-11-30] MEDS ORDERED: VANCOMYCIN 1,000 MG in DEXTROSE 5% 250 ML IV ONE (19:55)
[2020-11-30] MEDS ORDERED: NACL 0.9% 2,000 ML IV SCH (19:55)
[2020-11-30] MEDS ORDERED: cefTRIAXone 1,000 MG in DEXT 5% MINI-BAG PLUS 50 ML IV ONE (19:55)
--- NOTE | 2020-11-30 20:10 | NUR ---
65 YR OLD MALE BIBA FROM [facility] WITH CC OF ABNORMAL LABS. PT WAS FOUND IN SEMI-VAZ'S POSITION IN BED. PT IS NON-VERBAL. PT DOES NOT APPEAR TO BE IN DISTRESS. PT HAS EQUAL RISE AND FALL UPON RESPIRATION. BED LOCKED IN LOWEST POSITION WITH 2 SIDE RAILS UP FOR SAFETY. WILL CONTINUE TO MONITOR. HISTORY- INTELLECTUAL DISABILITY, CHRONIC CONSTIPATION, ANEMA, HTN, EPILEPSY ALLERGIES- DEXTRAN SULFATE, METHYLPHENIDATE, AND PHENYTOIN
[2020-11-30] MEDS ORDERED: MIDAZOLAM 2 MG/2 ML VIAL IVP STA (20:24)
--- NOTE | 2020-11-30 20:25 | NUR ---
EKG PERFORMED AT BEDSIDE. EKG READS SINUS TACHYCARDIA @ 103
[2020-11-30] MEDS ORDERED: VANCOMYCIN 1,000 MG VIAL ONE (20:37)
[2020-11-30] MEDS ORDERED: cefTRIAXone 1,000 MG VIAL ONE (20:37)
[2020-11-30 21:16] LABS: BASOPHILS # (AUTO) 0.2 K/uL (0.00-0.22); BASOPHILS % (AUTO) 1.4 % (0.0-2.0); EOSINOPHILS # (AUTO) 0.2 K/uL (0-0.4); EOSINOPHILS % (AUTO) 1.7 % (0.0-4.0); HEMATOCRIT 37.2 % (36-52); HEMOGLOBIN 11.9 g/dL (12.0-18.0); LYMPHOCYTES # (AUTO) 0.6 K/uL (2.0-11.5); LYMPHOCYTES % (AUTO) 3.8 % (20.5-51.1); MEAN CORPUSCULAR HEMOGLOBIN 28 pg (27-31); MEAN CORPUSCULAR HGB CONC 32 g/dL (33-37); MEAN CORPUSCULAR VOLUME 87.2 fL (80-94); MONOCYTES # (AUTO) 1.1 K/uL (0.8-1.0); MONOCYTES % (AUTO) 7.5 % (1.7-9.3); NEUTROPHILS # (AUTO) 12.5 K/uL (1.8-7.7); NEUTROPHILS % (AUTO) 85.6 % (42.2-75.2); PLATELET COUNT (AUTO) 224 K/uL (140-450); RED BLOOD CELL COUNT(AUTO) 4.26 MIL/uL (4.20-6.10); RED CELL DISTRIBUTION WIDTH 35.4 % (11.6-13.7); WHITE BLOOD COUNT (AUTO) 14.6 K/uL (4.8-10.8)
[2020-11-30 21:25] LABS: PROTHROMBIN TIME 10.6 secs (10.8-13.4)
--- NOTE | 2020-11-30 21:29 | NUR ---
PT TAKEN TO RADIOLOGY
[2020-11-30 21:41] LABS: ANION GAP 13.2 (8-16); CARBON DIOXIDE 23.8 mmol/L (21-32); CREATININE 0.7 mg/dL (0.6-1.3); TOTAL BILIRUBIN 0.3 mg/dL (0.0-1.0)
--- NOTE | 2020-11-30 21:42 | NUR ---
Pt returned from ct via [facility].
--- NOTE | 2020-11-30 22:00 | NUR ---
PT FOUND AWAKE IN SEMI-VAZ'S POSITION IN BED. PT DOES NOT APPEAR TO BE IN DISTRESS. PT HAS EQUAL RISE AND FALL UPON RESPIRATION. PT HAS CAPILLARY REFILL LESS THAN 2 SECONDS IN ALL FINGERS AND TOES. BED LOCKED IN LOWEST POSITION WITH 2 SIDE RAILS UP FOR SAFETY.
--- NOTE | 2020-11-30 23:05 | NUR ---
Per ERMD administer straight cath for urine collection and urine dip.
--- NOTE | 2020-11-30 23:10 | NUR ---
# 14 FR Urinary catheter inserted utilizing sterile technique. Immediate return of 200 ml yellow urine noted. Urine sample collected and sent to lab. Pt tolerated procedure well.
--- NOTE | 2020-11-30 23:15 | NUR ---
x1 episode of diarrhea noted . ERMD made aware.
--- NOTE | 2020-11-30 23:30 | NUR ---
Perineal care provided . x 1 episode of brown diarrhea noted. Procedure well tolerated by patient. New diaper , chucks and blanket placed on patient. Pt repositioned for comfort. VSS. No acute distress noted.
[2020-12-01 00:02] LABS: APPEARANCE,URINE CLEAR (CLEAR); BILIRUBIN,URINE NEGATIVE (NEGATIVE); BLOOD, URINE NEGATIVE (NEGATIVE); COLOR,URINE YELLOW (YELLOW); LEUKOCYTE ESTERASE ,URINE NEGATIVE (NEGATIVE); NITRITE, URINE NEGATIVE (NEGATIVE); PH,URINE 5.5 (5.0-9.0); UGLUCOSE NEGATIVE (NEGATIVE)
--- NOTE | 2020-12-01 02:55 | NUR ---
Pt became flushed w/ elevated HR , axillary temp 100.8 F. ERMD made aware and will place order for tylenol and lab for cdiff.
[2020-12-01] MEDS ORDERED: ACETAMINOPHEN EXTRA STRENGTH 500 MG TAB PO ONE (03:00)
[2020-12-01] MEDS ORDERED: CRUSHER, PILL MC ONE (03:03)
--- NOTE | 2020-12-01 03:22 | NUR ---
RAMILA SAMPLE COLLECTED FOR C-DIFF TEST. PERINEAL CARE PERFORMED. PT TOLERATED WELL. Addendum: 12/01/20 at 0323 by MEDOE STOOL SAMPLE COLLECTED FOR C-DIFF TEST AND WALKED TO LAB. PERINEAL CARE PERFORMED. PT TOLERATED WELL.
--- NOTE | 2020-12-01 04:00 | NUR ---
PT FOUND ASLEEP IN SEMI-VAZ'S POSITION IN BED. PT DOES NOT APPEAR TO BE IN DISTRESS. PT HAS EQUAL RISE AND FALL UPON RESPIRATION. BED LOCKED IN LOWEST POSITION WITH 2 SIDE RAILS UP FOR SAFETY.
--- NOTE | 2020-12-01 04:25 | NUR ---
RECHECKED AXILLARY TEMP = 98.0*F.
--- NOTE | 2020-12-01 07:10 | NUR ---
TRANSFER OF CARE REPORT PROVIDED TO CARMEN ALVARADO.
--- NOTE | 2020-12-01 08:42 | NUR ---
TRANSPORT AT BEDSIDE, HANDED PAPERWORK. WILL BE GOING BACK TO [facility] [place].
[2020-12-01 09:15] VITALS: BP 134/65
--- NOTE | 2020-12-01 09:16 | NUR ---
Patient discharged with v/s stable. Written and verbal after care instructions given and explained. Patient verbalized understanding. Transport with to [facility]. All questions addressed prior to discharge. Advised to follow up with PMD.
== END 2020-11-30 23:23 ==
LOC: MED 19:38
DX: E86.0 Dehydration (principal); F80.9 Developmental disorder of speech and language, unspecified
CPT/HCPCS: 36415; 71045; 74176; 80053; 81003; 82550; 82553; 83605; 83880; 84484; 85025; 85610; 85730; 87040; 87070; 87086; 93005; 96365; 96366; 96368; 96375; 99285; C1758; J0696; J2250; J3370; J7030; J7060